=== PATIENT | female | born 1930 | race African-American/Black ===

== ENCOUNTER 2018-12-18 14:01 | Inpatient (IN) | payer OTHER ==
[~2018-12-18] VITALS: Ht 165.1 cm; Wt 45.5 kg
[~2018-12-18 14:01] MED LIST: AMLODIPINE BESYL5 MG ORAL; CARBAMAZEPINE200 MG ORAL; METOPROLOL SUCC50 MG ORAL
[2018-12-18] MEDS ORDERED: Sodium Chloride 550 ML IV SCH (14:15)
[2018-12-18] MEDS ORDERED: Omnipaque-300 100ml vial INJ PRN (14:15)
--- NOTE | 2018-12-18 14:16 | NUR ---
ED Nurse Note: Pt came in to ED due to generalized weaknes x 1 week. Pt also c/o decreased in her appetite. Denies CP or any pain. Noted yellow skin color. AAO x4 and ambulatory with non labored breathing.
--- NOTE | 2018-12-18 14:17 | Emergency Room Report ---
History of Present Illness General Chief Complaint: Generalized Weakness Source: Patient, Medical Record Present Illness HPI The patient presents with jaundice and weight loss. She is uncertain how long this is been going on. She feels hungry at this time usually does not have an appetite. She occasionally has diarrhea but denies any vomiting. She also denies abdominal pain. A friend of hers saw her today and said that she had jaundice and that she needed to go to the hospital. She is uncertain what this means and has not been told by her doctor with the diagnosis is. She is complaining about generalized weakness. She denies any depression. The patient denies fevers, chills, chest pain, cough, dysuria, joint pain. History of hypertension. Allergies: Coded Allergies: No Known Allergies (Unverified , 08/08/18) Patient History Past Medical History: old chart reviewed Social History: Denies: smoking, alcohol use, drug use Social History Narrative from home Last Menstrual Period: N/A Reviewed Nursing Documentation: PMH: Agreed; PSxH: Agreed Nursing Documentation-PMH Hx Cardiac Problems: No Hx Hypertension: Yes Hx Pacemaker: No Hx Asthma: No Hx COPD: No Hx Diabetes: No Hx Cancer: No Hx Gastrointestinal Problems: No Hx Dialysis: No Hx Neurological Problems: No Hx Cerebrovascular Accident: No Hx Seizures: No Review of Systems All Other Systems: negative except mentioned in HPI Physical Exam Vital Signs Date Time Temp Pulse Resp B/P (MAP) Pulse Ox O2 Delivery O2 Flow Rate FiO2 12/18/18 14:02 97.2 81 18 135/61 (85) 97 Room Air Sp02 EP Interpretation: reviewed, normal General Appearance: no apparent distress, alert, non-toxic, cachetic, thin, Chronically Ill Head: normocephalic, atraumatic Eyes: bilateral eye PERRL, bilateral eye scleral icterus ENT: dry mucus membranes Neck: supple Respiratory: lungs clear Cardiovascular #1: regular rate, rhythm Cardiovascular #2: 2+ radial (R) Gastrointestinal: non tender, soft, no mass, scaphoid Genitourinary: no CVA tenderness Musculoskeletal: back normal, normal range of motion Neurologic: alert, motor weakness - Diffuse, other - No asterixis, oriented - X2 Psychiatric: mood/affect normal Skin: jaundice Medical Decision Making Diagnostic Impression: Primary Impression: Painless jaundice Additional Impressions: Pancreatic mass Dehydration Severe protein-calorie malnutrition ER Course The patient presents with painless jaundice and signs of dehydration. Differential includes obstructive lesion in the gallbladder system, hepatitis, weakness, weight loss amongst others. Evaluation will be with EKG, chest x-ray , CT of the abdomen and pelvis with contrast, ultrasound of the abdomen and labs. The patient will receive IV hydration. EKG normal sinus rhythm with ST inversions inferiorly and septally with prolonged QT. CBC essentially normal. CMP with elevated bilirubin and liver function test, low sodium and potassium with mild renal insufficiency. Lipase minimally elevated. Coags normal. Ultrasound with biliary dilatation and possible pancreatic mass. Gallbladder wall normal. Possible sludge. CT is recorded below with pancreatic mass. Patient evaluated by Dr. Yoo in ED. Admitted Dr. Sky. Contact Dr. Galvez for consultation. Laboratory Tests Test 12/18/18 14:12 12/18/18 17:15 White Blood Count 9.8 K/UL (4.8-10.8) Red Blood Count 3.39 M/UL (4.20-5.40) L Hemoglobin 11.1 G/DL (12.0-16.0) L Hematocrit 33.8 % (37.0-47.0) L Mean Corpuscular Volume 100 FL (80-99) H Mean Corpuscular Hemoglobin 32.6 PG (27.0-31.0) H Mean Corpuscular Hemoglobin Concent 32.8 G/DL (32.0-36.0) Red Cell Distribution Width 13.5 % (11.6-14.8) Platelet Count 404 K/UL (150-450) Mean Platelet Volume 5.5 FL (6.5-10.1) L Neutrophils (%) (Auto) % (45.0-75.0) Lymphocytes (%) (Auto) % (20.0-45.0) Monocytes (%) (Auto) % (1.0-10.0) Eosinophils (%) (Auto) % (0.0-3.0) Basophils (%) (Auto) % (0.0-2.0) Differential Total Cells Counted 100 Neutrophils % (Manual) 89 % (45-75) H Lymphocytes % (Manual) 6 % (20-45) L Monocytes % (Manual) 3 % (1-10) Eosinophils % (Manual) 0 % (0-3) Basophils % (Manual) 0 % (0-2) Band Neutrophils 2 % (0-8) Platelet Estimate Adequate Platelet Morphology Normal Polychromasia 1+ Macrocytosis 1+ Prothrombin Time 10.6 SEC (9.30-11.50) Prothrombin Time INR 1.0 (0.9-1.1) PTT 25 SEC (23-33) Sodium Level 131 MMOL/L (136-145) L Potassium Level 3.3 MMOL/L (3.5-5.1) L Chloride Level 90 MMOL/L (98-107) L Carbon Dioxide Level 18 MMOL/L (21-32) L Anion Gap 23 mmol/L (5-15) H Blood Urea Nitrogen 24 mg/dL (7-18) H Creatinine 1.2 MG/DL (0.55-1.30) Estimate Glomerular Filtration Rate mL/min (>60) Glucose Level 107 MG/DL (74-106) H Calcium Level 9.7 MG/DL (8.5-10.1) Total Bilirubin 22.4 MG/DL (0.2-1.0) H Direct Bilirubin 18.3 MG/DL (0.0-0.3) H Aspartate Amino Transferase (AST) 156 U/L (15-37) H Alanine Aminotransferase (ALT) 165 U/L (12-78) H Alkaline Phosphatase 502 U/L (46-116) H Ammonia < 10 umol/L (11-32) L Troponin I 0.000 ng/mL (0.000-0.056) Total Protein 6.4 G/DL (6.4-8.2) Albumin 2.9 G/DL (3.4-5.0) L Globulin 3.5 g/dL Albumin/Globulin Ratio 0.8 (1.0-2.7) L Amylase Level 89 U/L (25-115) Lipase 523 U/L (73-393) H Urine Color [place] Urine Appearance Cloudy Urine pH 6 (4.5-8.0) Urine Specific [place] 1.010 (1.005-1.035) Urine Protein 2+ (NEGATIVE) H Urine Glucose (UA) Negative (NEGATIVE) Urine Ketones 4+ (NEGATIVE) H Urine Blood 4+ (NEGATIVE) H Urine Nitrite Positive (NEGATIVE) H Urine Bilirubin 2+ (NEGATIVE) H Urine Ictotest Positive (NEGATIVE) Urine Urobilinogen 4 MG/DL (0.0-1.0) H Urine Leukocyte Esterase 1+ (NEGATIVE) H Urine RBC 15-20 /HPF (0 - 2) H Urine WBC 2-4 /HPF (0 - 2) Urine Squamous Epithelial Cells Few /LPF (NONE/OCC) Urine Bacteria Many /HPF (NONE) H EKG Diagnostic Results Rate: normal Rhythm: NSR ST Segments: no acute changes - ST inversions inferiorly and septally without acute injury. QTC is 500 which is prolonged. Rhythm Strip Diag. Results EP Interpretation: yes Rhythm: NSR, no PVC's, no ectopy CT/MRI/US Diagnostic Results CT/MRI/US Diagnostic Results #1: Imaging Test Ordered: us abd Impression dilated portal system and possible pancreatic mass CT/MRI/US Diagnostic Results #2: Imaging Test Ordered: CT abdomen and pelvis Impression Impression: 1 heterogeneous mass within the body of the pancreas measuring 5.1 x 5.0 x 5.9 cm with area of internal cystic change. Findings consistent with malignancy. 2 there is upstream dilatation of the pancreatic duct and severe intrahepatic and extrahepatic biliary dilatation. 3 the gallbladder is markedly distended extending into the pelvis. No mucosal inflammatory changes. For portal veins splenic vein and superior mesenteric vein are patent. 5 nonspecific left adrenal nodule measuring 1.9 cm. Metastatic disease could have this appearance however the distribution would be atypical for primary pancreatic malignancy. 6 sigmoid diverticulosis without diverticulitis. Last Vital Signs Date Time Temp Pulse Resp B/P (MAP) Pulse Ox O2 Delivery O2 Flow Rate FiO2 12/19/18 00:56 97.6 76 17 131/66 (87) 12/18/18 21:37 Room Air 12/18/18 18:58 98 Status: improved Disposition: ADMITTED INPATIENT Condition: Serious Parish Ewing MD Dec 18, 2018 14:17
[2018-12-18 14:38] LABS: HEMATOCRIT 33.8 % (37.0-47.0); HEMOGLOBIN 11.1 G/DL (12.0-16.0); MEAN CORPUSCULAR VOLUME 100 FL (80-99); PLATELET COUNT 404 K/UL (150-450); RED BLOOD COUNT 3.39 M/UL (4.20-5.40); RED CELL DISTRIBUTION WIDTH 13.5 % (11.6-14.8); WHITE BLOOD COUNT 9.8 K/UL (4.8-10.8)
--- NOTE | 2018-12-18 14:48 | Consultation ---
History of Present Illness General Date patient seen: Dec 18, 2018 Reason for Hospitalization: Generalized Weakness Present Illness HPI This is a very pleasant 88-year-old female who presented to the emergency department at [facility] complaining of decreased appetite, weight loss, fatigue, jaundice. Patient is presenting with her family member "June" who confirms the above. States that she is been having decreased appetite for some time now but is been worsening in the past week. Feels like she is losing significant weight which she has been for some time but worsening in the past week. States that she feels much thinner and weaker than before. Has identified jaundice but unsure about how long its been going on for. States that she saw her loan analyst approximately 2 weeks ago and did not mention anything about her jaundice. Believes it may have just happened in the past week. Family member believes that it may have been going on a little bit longer as she states last time she was at the grocery store with her few weeks ago she thought she may have been jaundiced. No nausea vomiting fever chills. Passing flatus. No pain. No itching. No prior symptoms. Has difficulty remembering all of her medical conditions. Allergies: Coded Allergies: No Known Allergies (Unverified , 08/08/18) Medication History Scheduled Amlodipine Besylate* (Amlodipine Besylate*), 5 MG ORAL BID, (Reported) Carbamazepine* (Carbamazepine*), 200 MG ORAL BID, (Reported) Metoprolol Succinate* (Metoprolol Succinate*), 50 MG ORAL DAILY, (Reported) Patient History Limited by: other History Provided By: Patient, Family Member, Medical Record, PMD Healthcare decision maker Resuscitation status Advanced Directive on File Past Medical/Surgical History Past Medical/Surgical History: (1) Painless jaundice Review of Systems Review of Symptoms General ROS: no weight loss or fever Psychological ROS: no depression or mood changes, no memory loss Ophthalmic ROS: no visual changes or eye irritation ENT ROS: no nasal congestion, hearing loss, dizziness Allergy and Immunology ROS: no allergic symptoms or urticaria Hematological and Lymphatic ROS: no swollen glands, unusual bleeding or bruising Endocrine ROS: no polyuria, polydipsia, weight changes, temperature intolerance Respiratory ROS: no cough, shortness of breath, or wheezing Cardiovascular ROS: no chest pain or dyspnea on exertion Gastrointestinal ROS: denies abdominal pain, bright red blood in stool. Musculoskeletal ROS: no myalgias or arthralgias Neurological ROS: no TIA or stroke symptoms Dermatological ROS: no new or changing skin lesions, rashes or pruritis Physical Exam Physical Exam General appearance: alert, cooperative, no distress, appears stated age jaundice Head: Normocephalic, without obvious abnormality, atraumatic, icteric Eyes: conjunctivae/corneas clear. PERRL, EOM's intact. Fundi benign icteric Throat: Lips, mucosa, and tongue normal. Teeth and gums normal Neck: supple, symmetrical, trachea midline, no adenopathy, thyroid: not enlarged, symmetric, no tenderness/mass/nodules, no carotid bruit and no JVD Lungs: clear to auscultation bilaterally Heart: regular rate and rhythm, S1, S2 normal, no murmur, click, rub or gallop Abdomen: soft, non-tender. Bowel sounds normal. No masses, no organomegaly Extremities: extremities normal, atraumatic, no cyanosis or edema Pulses: 2+ and symmetric Skin: Skin color, texture, turgor normal. No rashes or lesions, jaundice Neurologic: Grossly normal Last 24 Hour Vital Signs Date Time Temp Pulse Resp B/P (MAP) Pulse Ox O2 Delivery O2 Flow Rate FiO2 12/18/18 14:16 81 18 Room Air 12/18/18 14:02 97.2 81 18 135/61 (85) 97 Room Air Laboratory Tests Test 12/18/18 14:12 White Blood Count 9.8 K/UL (4.8-10.8) Red Blood Count 3.39 M/UL (4.20-5.40) L Hemoglobin 11.1 G/DL (12.0-16.0) L Hematocrit 33.8 % (37.0-47.0) L Mean Corpuscular Volume 100 FL (80-99) H Mean Corpuscular Hemoglobin 32.6 PG (27.0-31.0) H Mean Corpuscular Hemoglobin Concent 32.8 G/DL (32.0-36.0) Red Cell Distribution Width 13.5 % (11.6-14.8) Platelet Count 404 K/UL (150-450) Mean Platelet Volume 5.5 FL (6.5-10.1) L Neutrophils (%) (Auto) % (45.0-75.0) Lymphocytes (%) (Auto) % (20.0-45.0) Monocytes (%) (Auto) % (1.0-10.0) Eosinophils (%) (Auto) % (0.0-3.0) Basophils (%) (Auto) % (0.0-2.0) Neutrophils % (Manual) Pending Lymphocytes % (Manual) Pending Platelet Estimate Pending Platelet Morphology Pending Prothrombin Time Pending Prothromb Time International Ratio Pending Activated Partial Thromboplast Time Pending Sodium Level Pending Potassium Level Pending Chloride Level Pending Carbon Dioxide Level Pending Blood Urea Nitrogen Pending Creatinine Pending Estimat Glomerular Filtration Rate Pending Glucose Level Pending Calcium Level Pending Total Bilirubin Pending Aspartate Amino Transf (AST/SGOT) Pending Alanine Aminotransferase (ALT/SGPT) Pending Alkaline Phosphatase Pending Ammonia Pending Troponin I Pending Total Protein Pending Albumin Pending Globulin Pending Amylase Level Pending Lipase Pending Height (Feet): 5 Height (Inches): 9.00 Weight (Pounds): 105 Medications Current Medications Medications (Trade) Dose Ordered Sig/Og Route PRN Reason Start Time Stop Time Status Last Admin Dose Admin Barium Sulfate (Readi-Cat 2) 450 ml NOW PRN ORAL Radiology Procedure 12/18/18 14:15 12/20/18 14:11 Iohexol (OMNIPAQUE-300 100ml) 100 ml NOW PRN INJ Radiology Procedure 12/18/18 14:15 12/20/18 14:11 Sodium Chloride 550 ml @ 200 mls/hr Q2H45M IV 12/18/18 14:15 01/17/19 14:14 Assessment/Plan Problem List: (1) Severe protein-calorie malnutrition ICD Codes: E43 - Unspecified severe protein-calorie malnutrition SNOMED: 997272141, [id number], [id number] (2) Painless jaundice Assessment & Plan: IMPRESSION: 1. Heterogeneous mass within the body of the pancreas measuring 5.1 x 5. 0 x 5.9 cm with area of internal cystic change. Finding is consistent with malignancy. 2. There is upstream dilatation of the pancreatic duct and severe intrahepatic and extrahepatic biliary dilatation. 3. The gallbladder is markedly distended extending into the pelvis. No mucosal inflammatory changes. 4. The portal veins, splenic vein, and SMV are patent. 5. Nonspecific left adrenal nodule measuring 1.9 cm. Metastatic disease could have this appearance however the distribution would be atypical for a primary pancreatic malignancy. 6. Sigmoid diverticulosis without diverticulitis. Likely pancreatic CA patient not aware of this until today labs noted recommend transfer to higher level of care thank you ICD Codes: R17 - Unspecified jaundice SNOMED: [id number], [id number] Vel Yoo Dec 18, 2018 14:48
--- NOTE | 2018-12-18 14:49 | NUR ---
ED Nurse Note: Friends left phone numbers June [phone] Apoorva [phone]
[2018-12-18 14:55] LABS: AMMONIA < 10 umol/L (11-32)
[2018-12-18 15:02] VITALS: BP 121/65
[2018-12-18 15:11] LABS: ALANINE AMINOTRANSFERASE 165 U/L (12-78); ALBUMIN 2.9 G/DL (3.4-5.0); ALBUMIN/GLOBULIN RATIO 0.8 (1.0-2.7); ALKALINE PHOSPHATASE 502 U/L (46-116); AMYLASE 89 U/L (25-115); ANION GAP 23 mmol/L (5-15); ASPARTATE AMINO TRANSFERASE 156 U/L (15-37); BILIRUBIN,TOTAL 22.4 MG/DL (0.2-1.0); BLOOD UREA NITROGEN 24 mg/dL (7-18); CALCIUM 9.7 MG/DL (8.5-10.1); CARBON DIOXIDE 18 MMOL/L (21-32); CHLORIDE 90 MMOL/L (98-107); CREATININE 1.2 MG/DL (0.55-1.30); POTASSIUM 3.3 MMOL/L (3.5-5.1); SODIUM 131 MMOL/L (136-145)
[2018-12-18 15:15] LABS: BILIRUBIN,DIRECT 18.3 MG/DL (0.0-0.3)
--- NOTE | 2018-12-18 16:35 | NUR ---
ED Nurse Note: Pt taken to CT and stable.
[2018-12-18 16:41] VITALS: BP 103/45
--- NOTE | 2018-12-18 16:51 | NUR ---
ED Nurse Note: Pt came back from CT and stable.
--- NOTE | 2018-12-18 17:40 | NUR ---
ED Nurse Note: Collected urine then sent to lab.
[2018-12-18 17:48] LABS: APPEARANCE,URINE CLOUDY; BILIRUBIN, URINE 2+ (NEGATIVE); GLUCOSE, URINE (UA) NEGATIVE (NEGATIVE); KETONES,URINE 4+ (NEGATIVE); LEUKOCYTE ESTERASE ,URINE 1+ (NEGATIVE); NITRITE,URINE POSITIVE (NEGATIVE); PH,URINE 6 (4.5-8.0); PROTEIN,URINE 2+ (NEGATIVE); UROBILINOGEN,URINE 4 MG/DL (0.0-1.0)
[2018-12-18 17:52] LABS: COLOR,URINE ORANGE
--- NOTE | 2018-12-18 18:50 | NUR ---
NURSE NOTES: Received patient from ER at 1820 from transporter laying on [place] CAREN x4 with out no distress wet with urine and bowel, get cleaned and skin intact, skin barrier cream applied. bed on low position locked and alarm on, call light with in reach, belonging received and signed, pant, blouse, slipper and under wear patient claimed she had wallet and cellphone RN and Tech verified with ER nurse no cellphone or wallet seen or reported at ER. Per ER nurse patient brought to the hospital by a neighbor may be she took it back home, pt. will call and verify with neighbor. noted white liquid stool with sour smell and will endorse to night shift supervisor nurse to report to MD.
[2018-12-18 18:58] VITALS: BP 132/72
--- NOTE | 2018-12-18 19:08 | Diagnostic Imaging Report ---
EXAM: CT Abdomen and Pelvis With Intravenous Contrast CLINICAL HISTORY: ABD PAIN TECHNIQUE: Axial computed tomography images of the abdomen and pelvis with intravenous contrast. CTDI is 9.8 mGy and DLP is 521.9 mGy-cm. One or more of the following dose reduction techniques were used: automated exposure control, adjustment of the mA and or kV according to patient size, use of iterative reconstruction technique. COMPARISON: No relevant prior studies available. FINDINGS: Lung bases: Unremarkable. No mass. No consolidation. ABDOMEN: Liver: See below. Gallbladder and bile ducts: The gallbladder is markedly distended extending into the pelvis. No mucosal inflammatory changes. Pancreas: Heterogeneous mass within the body of the pancreas measuring 5.1 x 5.0 x 5.9 cm with area of internal cystic change. There is upstream dilatation of the pancreatic duct and severe intrahepatic and extrahepatic biliary dilatation. Spleen: See below. Adrenals: Nonspecific left adrenal nodule measuring 1.9 cm. Kidneys and ureters: Unremarkable. No solid mass. No hydronephrosis. Stomach and bowel: Sigmoid diverticulosis without diverticulitis. No obstruction. PELVIS: Appendix: No findings to suggest acute appendicitis. Bladder: Unremarkable. No mass. Reproductive: Unremarkable as visualized. ABDOMEN and PELVIS: Intraperitoneal space: Unremarkable. No free air. No significant fluid collection. Bones joints: No acute fracture. No dislocation. Soft tissues: Unremarkable. Vasculature: The portal veins, splenic vein, and SMV are patent. No abdominal aortic aneurysm. Lymph nodes: Unremarkable. No enlarged lymph nodes. IMPRESSION: 1. Heterogeneous mass within the body of the pancreas measuring 5.1 x 5. 0 x 5.9 cm with area of internal cystic change. Finding is consistent with malignancy. 2. There is upstream dilatation of the pancreatic duct and severe intrahepatic and extrahepatic biliary dilatation. 3. The gallbladder is markedly distended extending into the pelvis. No mucosal inflammatory changes. 4. The portal veins, splenic vein, and SMV are patent. 5. Nonspecific left adrenal nodule measuring 1.9 cm. Metastatic disease could have this appearance however the distribution would be atypical for a primary pancreatic malignancy. 6. Sigmoid diverticulosis without diverticulitis.
--- NOTE | 2018-12-18 19:23 | Diagnostic Imaging Report ---
EXAM: US Abdomen Complete CLINICAL HISTORY: ABD PAIN TECHNIQUE: Real-time ultrasound of the abdomen (complete) with image documentation. COMPARISON: Same-day CT abdomen pelvis. FINDINGS: Liver: Dilatation of the intrahepatic and extrahepatic biliary tree, common bile duct measuring 7 mm. Cyst within the left hepatic lobe measuring 2.8 cm. Gallbladder: Sludge within the gallbladder which is markedly distended. No gallstones. Common bile duct: Measures 7 mm. Pancreas: Mass in the pancreas measuring 6.6 cm. Kidneys: Unremarkable. No stones. No solid mass. No hydronephrosis. Spleen: Unremarkable. No splenomegaly. Aorta: Unremarkable. No aneurysm. Inferior vena cava: Unremarkable. IMPRESSION: 1. Mass within the pancreatic body resulting in severe biliary dilatation and upstream pancreatic ductal dilatation. Overall evaluation better performed on the same day CT. 2. Distended gallbladder with intraluminal sludge.
--- NOTE | 2018-12-18 19:31 | NUR ---
HAND-OFF: Report given to Van Adam RN patient stable condition.
--- NOTE | 2018-12-18 20:12 | History & Physical ---
History and Physical History & Physicial #[id number] 5 cm pancreatic mass liliana dilt distended gall baladder jaundice Reqeusted transfer to [facility] gi and surgery eval IVF npo pain onctrol home meds Daisy Sky DO Dec 18, 2018 20:12
[2018-12-18] MEDS ORDERED: Morphine Sulfate 2mg/ml Inj(IV/IM USE ONLY) IVP PRN (20:45)
[2018-12-18] MEDS: D5NS 1,000 ML IV SCH (20:57)
--- NOTE | 2018-12-18 21:15 | History and Physical Report ---
DATE OF ADMISSION: 12/18/2018 REASON FOR ADMISSION: Jaundice. HISTORY OF PRESENT ILLNESS: This is an 88-year-old female, who states she has had significant amount of weight loss. She has also been jaundiced. Timeframe is between 2 weeks and a month. Not taking NPO. Generally weak. No nausea, vomiting, diarrhea, fever, chills, or ill contacts. She was brought into the emergency room and ultrasound showed a possible pancreatic mass. A CT scan of the abdomen and pelvis was obtained, which did show a 5.1 x 5 x 5.9 cm heterogeneous masses in the body of the pancreas, upstream dilatation of the pancreatic duct, severe intrahepatic and extrahepatic biliary ductal dilatation was noted. The gallbladder was markedly distended and extending into the pelvis. No mucosal inflammatory changes were noted. The adrenals had a left nodule measuring 1.9 cm. The kidneys are unremarkable. The appendix was negative for findings of appendicitis. There was no free air noted and the portal vein and splenic veins and SMV were all patent and sigmoid diverticulosis was noted. PAST MEDICAL HISTORY: Includes hypertension. MEDICATIONS: Pre-hospital medications and present medications were reviewed, reconciled, and documented in the electronic medical record by dose, frequency, and route. ALLERGIES: She has no known drug allergies. SOCIAL HISTORY: Negative for tobacco and drugs. FAMILY HISTORY IS: Noncontributory. REVIEW OF SYSTEMS: As previously stated. The patient does live at home. PHYSICAL EXAMINATION: GENERAL: At the time my exam, she is alert, cachectic, and in no acute respiratory distress. VITAL SIGNS: She is afebrile. Her pulse is 91, respirations 18, and blood pressure 130/78, and she is 98% on 2 liters. HEENT: She is normocephalic and atraumatic. Oropharynx is dry. Nasal mucosa is dry. She has a poor dentition. NECK: Supple. LUNGS: Decreased at the bases. No wheeze present. HEART: Regular without a murmur. ABDOMEN: Soft, nondistended, and mildly tender. EXTREMITIES: No edema. No focal deficits are noted. LABORATORY DATA: Her white count is 9.8, hemoglobin 11.1, and platelets are 404,000. Her sodium is 131, potassium 3.3, chloride 90, bicarb 18, BUN 24, creatinine 1.2, and glucose is 107. Her direct bilirubin is 18.3. AST is 156, ALT is 165, and alkaline phosphatase is 502. Troponins negative. Albumin is 2.9. Lipase is 523. Her urinalysis is positive for leukocyte esterase. ASSESSMENT: Newly diagnosed large pancreatic mass suspicious for malignancy with and hyperbilirubinemia and enlarged gallbladder extending down to the pelvis, cachexia, malnutrition, renal insufficiency, dehydration, and hyponatremia. PLAN: She is currently Full Code. I have requested her to be transferred to [facility], which is the medical group for further continuation of care. Dr. Schwartz is her primary care physician. At this time, we will keep her NPO, IV fluids. Monitor her ins and outs and pain control. Gastroenterology has asked to see the patient. Surgery has seen the patient and we will notify of the CT findings. Daisy Sky D.O. DR: GALLO JOB#: [id number] CC:
--- NOTE | 2018-12-18 22:30 | NUR ---
NURSES NOTES: Patient is new admission. Entered Med Surg unit at apprx 1825 12/18. Pt was seen by attending doctor who suggested patient be transferred to [facility]. Phoebe called from [facility] and requested recent H&P which was faxed to [phone]. Currently, Phoebe states there are no beds available but will update in the morning. Patients VS wnl, no s/s of distress, unlabored breathing pattern noted, NPO. Call light within reach, bed at lowest position, will continue to monitor.
[2018-12-19 00:56] VITALS: BP 131/66
[2018-12-19 04:00] VITALS: BP 116/48
[2018-12-19] MEDS: D5NS 1,000 ML IV SCH ×2 (06:23→16:35)
[2018-12-19 06:30] LABS: BASOPHILS % (AUTO) 0.3 % (0.0-2.0); EOSINOPHILS % (AUTO) 0.1 % (0.0-3.0); HEMATOCRIT 31.6 % (37.0-47.0); HEMOGLOBIN 10.4 G/DL (12.0-16.0); LYMPHOCYTES % (AUTO) 11.8 % (20.0-45.0); MEAN CORPUSCULAR VOLUME 99 FL (80-99); MONOCYTES % (AUTO) 5.5 % (1.0-10.0); NEUTROPHILS % (AUTO) 82.1 % (45.0-75.0); PLATELET COUNT 382 K/UL (150-450); RED BLOOD COUNT 3.19 M/UL (4.20-5.40); RED CELL DISTRIBUTION WIDTH 13.9 % (11.6-14.8); WHITE BLOOD COUNT 6.6 K/UL (4.8-10.8)
[2018-12-19 06:46] LABS: ALANINE AMINOTRANSFERASE 135 U/L (12-78); ALBUMIN 2.4 G/DL (3.4-5.0); ALKALINE PHOSPHATASE 437 U/L (46-116); ANION GAP 14 mmol/L (5-15); ASPARTATE AMINO TRANSFERASE 120 U/L (15-37); BILIRUBIN,DIRECT 15.1 MG/DL (0.0-0.3); BILIRUBIN,TOTAL 19.1 MG/DL (0.2-1.0); BLOOD UREA NITROGEN 16 mg/dL (7-18); CALCIUM 8.9 MG/DL (8.5-10.1); CARBON DIOXIDE 24 MMOL/L (21-32); CHLORIDE 97 MMOL/L (98-107); POTASSIUM 3.4 MMOL/L (3.5-5.1); SODIUM 135 MMOL/L (136-145)
--- NOTE | 2018-12-19 07:30 | NUR ---
NURSE NOTES: Patient is in bed awake and able to verbalize needs. Stable. Denies pain or SOB. Patient is jaundiced. IVF running as ordered. Patient encouraged to use call light for assistance, verbalized understanding. Patient is in bed in locked and lowest position with call light within reach. Will continue to monitor.
--- NOTE | 2018-12-19 07:46 | NUR ---
HAND-OFF: Report given to Jie. Patient in stable condition.
[2018-12-19 08:00] VITALS: BP 114/55
--- NOTE | 2018-12-19 08:54 | NUR ---
CASE MANAGEMENT: INITIAL REVIEW 88 YO F PRESENTED TO OUR ED FROM HOME CC: GEN WEAKNESS. WEIGHT LOSS. PMHx: HTN. SI:PAINLESS JAUNDICE T 97.2 HR 81 RR 18 B/P 135/61 SATS 97% ON RA NA 131 K 3.3 CL 90 CO2 18 B/P 24 GLU 107 TBILI 22.4 DBILI 18.3 AST 156 ALT 165 ALP 502 AMMONIA <10 LIPASE 523 IS: NS BOLUS X2 CT ABD/PELVIS IMPRESSION: 1. Heterogeneous mass within the body of the pancreas measuring 5.1 x 5.0 x 5.9 cm with area of internal cystic change. Finding is consistent with malignancy. US ABD IMPRESSION: 1. Mass within the pancreatic body resulting in severe biliary dilatation and upstream pancreatic ductal dilatation. 2. Distended gallbladder with intraluminal sludge. PATIENT ADMITTED TO MED/SURG 12/18/2018 @ 1652 DCP: PATIENT TO BE DISCHARGED TO HOME ONCE MEDICALLY CLEARED PLAN OF CARE: SURGICAL CONSULT 12/19/2018 SI:PAINLESS JAUNDICE T 97.8 HR 73 RR 18 B/P 116/48 SATS 100% ON RA NA 135 K 3.4 CL 97 GLU 205 TBILI 19.1 DBILI 15.1 AST 120 ALT 135 ALP 47 LIPASE 544 IS: IVF @ 100 mL/HR MED/SURG DCP: PATIENT TO BE DISCHARGED TO HOME ONCE MEDICALLY CLEARED PLAN OF CARE: SURGICAL CONSULT
--- NOTE | 2018-12-19 09:24 | General Progress Note ---
Assessment/Plan Assessment/Plan: GI CONSULT Dictated Painless jaundice. Pancreatic mass. Presumed pancreatic CA Will plan for EUS/FNA and ERCP/Stent in am (can be also done at [facility] if transferred) Check tumor markers Consider Onc eval Thank you Scott Steiner MD Subjective Allergies: Coded Allergies: No Known Allergies (Unverified , 08/08/18) Objective Last 24 Hour Vital Signs Date Time Temp Pulse Resp B/P (MAP) Pulse Ox O2 Delivery O2 Flow Rate FiO2 12/19/18 08:00 97.7 77 17 114/55 (74) 98 12/19/18 04:00 97.8 73 18 116/48 (70) 100 12/19/18 00:56 97.6 76 17 131/66 (87) 12/18/18 21:37 Room Air 12/18/18 18:58 97.9 91 19 132/72 (92) 98 12/18/18 18:11 98.3 79 15 115/67 99 Room Air 12/18/18 16:41 97.2 80 17 103/45 100 Room Air 12/18/18 15:02 97.2 78 18 121/65 100 Room Air 12/18/18 14:16 81 18 Room Air 12/18/18 14:02 97.2 81 18 135/61 (85) 97 Room Air Intake and Output 12/18/18 12/19/18 19:00 07:00 Intake Total 1200 ml 900 ml Balance 1200 ml 900 ml Intake IV Total 1200 ml 900 ml # Voids 2 # Bowel Movements 1 Laboratory Tests 12/18/18 14:12: White Blood Count 9.8, Red Blood Count 3.39L, Hemoglobin 11.1L, Hematocrit 33.8L , Mean Corpuscular Volume 100H, Mean Corpuscular Hemoglobin 32.6H, Mean Corpuscular Hemoglobin Concent 32.8, Red Cell Distribution Width 13.5, Platelet Count 404, Mean Platelet Volume 5.5L, Neutrophils (%) (Auto) , Lymphocytes (%) ( Auto) , Monocytes (%) (Auto) , Eosinophils (%) (Auto) , Basophils (%) (Auto) , Differential Total Cells Counted 100, Neutrophils % (Manual) 89H, Lymphocytes % (Manual) 6L, Monocytes % (Manual) 3, Eosinophils % (Manual) 0, Basophils % ( Manual) 0, Band Neutrophils 2, Platelet Estimate Adequate, Platelet Morphology Normal, Polychromasia 1+, Macrocytosis 1+, Prothrombin Time 10.6, Prothromb Time International Ratio 1.0, Activated Partial Thromboplast Time 25, Sodium Level 131L, Potassium Level 3.3L, Chloride Level 90L, Carbon Dioxide Level 18L, Anion Gap 23H, Blood Urea Nitrogen 24H, Creatinine 1.2, Estimat Glomerular Filtration Rate , Glucose Level 107H, Calcium Level 9.7, Total Bilirubin 22.4H, Direct Bilirubin 18.3H, Aspartate Amino Transf (AST/SGOT) 156H, Alanine Aminotransferase (ALT/SGPT) 165H, Alkaline Phosphatase 502H, Ammonia < 10L, Troponin I 0.000, Total Protein 6.4, Albumin 2.9L, Globulin 3.5, Albumin/ Globulin Ratio 0.8L, Amylase Level 89, Lipase 523H 12/18/18 17:15: Urine Color [place], Urine Appearance Cloudy, Urine pH 6, Urine Specific [place] 1.010, Urine Protein 2+H, Urine Glucose (UA) Negative, Urine Ketones 4+H, Urine Blood 4+H, Urine Nitrite PositiveH, Urine Bilirubin 2+H, Urine Ictotest Positive , Urine Urobilinogen 4H, Urine Leukocyte Esterase 1+H, Urine RBC 15-20H, Urine WBC 2-4, Urine Squamous Epithelial Cells Few, Urine Bacteria ManyH 12/19/18 05:10: White Blood Count 6.6, Red Blood Count 3.19L, Hemoglobin 10.4L, Hematocrit 31.6L , Mean Corpuscular Volume 99, Mean Corpuscular Hemoglobin 32.7H, Mean Corpuscular Hemoglobin Concent 33.0, Red Cell Distribution Width 13.9, Platelet Count 382, Mean Platelet Volume 5.5L, Neutrophils (%) (Auto) 82.1H, Lymphocytes (%) (Auto) 11.8L, Monocytes (%) (Auto) 5.5, Eosinophils (%) (Auto) 0.1, Basophils (%) (Auto) 0.3, Sodium Level 135L, Potassium Level 3.4L, Chloride Level 97L, Carbon Dioxide Level 24, Anion Gap 14, Blood Urea Nitrogen 16, Creatinine 1.0, Estimat Glomerular Filtration Rate , Glucose Level 205H, Calcium Level 8.9, Total Bilirubin 19.1H, Direct Bilirubin 15.1H, Aspartate Amino Transf (AST/SGOT) 120H, Alanine Aminotransferase (ALT/SGPT) 135H, Alkaline Phosphatase 437H, Total Protein 5.7L, Albumin 2.4L, Lipase 544H Height (Feet): 5 Height (Inches): 9.00 Weight (Pounds): 105 Peter Steiner MD Dec 19, 2018 09:24
[2018-12-19 12:00] VITALS: BP 124/66
[2018-12-19] MEDS ORDERED: D5NS 1000ml IV ONE (12:04)
--- NOTE | 2018-12-19 13:59 | NUR ---
RD ASSESSMENT & RECOMMENDATIONS SEE CARE ACTIVITY FOR COMPLETE ASSESSMENT DAILY ESTIMATED NEEDS: Needs based on Cachectic 40.5kg 30-35 kcals/kg 3261-0725 total kcals 1-1.5 g protein/kg 41-61 g total protein 25-30ml/kcal mL/kg 4010-7694 total fluid mLs NUTRITION DIAGNOSIS: Increased kcal and pro needs r/t underweight status, cachexia as evidenced by BMI underweight per guidelines, @61% of ideal body weight, w/ generalized moderate to severe wasting. CURRENT DIET: NPO PO DIET RECOMMENDATIONS-->> as per MD ADDITIONAL RECOMMENDATIONS: 1) W/ clear liquid diet add Ensure Clear TID 2) Rec to advance to Low Na diet/ texture as tolerated 3) Monitor BG (205), need for hypoglycemics NPO status as this time 4) Weekly calibrated bed scale wt r/t underweight status
--- NOTE | 2018-12-19 15:30 | Consultation ---
DATE OF CONSULTATION: 12/19/2018 GASTROENTEROLOGY CONSULTATION CONSULTING PHYSICIAN: Peter Steiner M.D. CHIEF COMPLAINT: I was asked to see this patient by Dr. Aryan Calles for evaluation of painless jaundice and pancreatic mass. HISTORY OF PRESENT ILLNESS: The patient is a pleasant 88-year-old woman, who has had a significant amount of weight loss over the past few months. The patient lives alone and has no support in the area. She has had no abdominal pain, nausea, vomiting, or any other symptomatology. However, she did notice that she is becoming weak and also more yellow and she came to the hospital emergency room where she was found to have jaundice with a 6 cm pancreatic mass was noted on CT. PAST MEDICAL HISTORY: As above for history of hypertension, history of diverticulosis seen on CT scan. MEDICATIONS: See the chart list for details. ALLERGIES: None. FAMILY HISTORY: Noncontributory. SOCIAL HISTORY: The patient does not drink or smoke. She has a son who lives far away and I left a message with respect to her findings and the plans. PHYSICAL EXAMINATION: GENERAL: Thin, woman, seen in her room. HEENT: Normocephalic and atraumatic. Sclerae anicteric. Oropharynx clear. NECK: Supple. CHEST: Clear to auscultation. CARDIOVASCULAR: Revealed a regular rate. ABDOMEN: Soft with a palpable supraumbilical epigastric mass. EXTREMITIES: Revealed no edema. LABORATORY DATA: Noted. ASSESSMENT: This patient has painless jaundice with a large pancreatic mass, which is highly suspicious for pancreatic cancer. The patient will have to undergo an endoscopic ultrasound to evaluate the mass and also perform fine-needle aspiration. At the same time, she also needs ERCP for stent placement and drainage. Obviously, the mass is large with poor prognostic feature. Also, the patient is quite malnourished appearing with advanced age and poor functional status. Her prognosis is therefore poor. I will check the tumor markers and Oncology opinion can be considered now or at a later date. RECOMMENDATIONS: 1. Check tumor markers. 2. NPO after midnight. 3. Endoscopic ultrasound and ERCP tomorrow as described. 4. Push oral intake. 5. DVT prophylaxis. Thank you for asking me to participate in the care of this patient. Peter Steiner M.D. DR: QIANA JOB#: [id number] CC: SUNNY
[2018-12-19 16:00] VITALS: BP 120/48
--- NOTE | 2018-12-19 16:25 | Surgery Progress Note ---
Surgery Progress Note Subjective Additional Comments no acute events now knows of mass in pancreas states has not seen MD in months or more labs noted non /v/f/c. Objective Last 24 Hour Vital Signs Date Time Temp Pulse Resp B/P (MAP) Pulse Ox O2 Delivery O2 Flow Rate FiO2 12/19/18 12:00 97.3 82 16 124/66 (85) 98 12/19/18 08:00 97.7 77 17 114/55 (74) 98 12/19/18 04:00 97.8 73 18 116/48 (70) 100 12/19/18 00:56 97.6 76 17 131/66 (87) 12/18/18 21:37 Room Air 12/18/18 18:58 97.9 91 19 132/72 (92) 98 12/18/18 18:11 98.3 79 15 115/67 99 Room Air 12/18/18 16:41 97.2 80 17 103/45 100 Room Air I&O Intake and Output 12/18/18 12/19/18 19:00 07:00 Intake Total 1200 ml 900 ml Balance 1200 ml 900 ml Intake IV Total 1200 ml 900 ml # Voids 2 # Bowel Movements 1 Cardiovascular: RSR Respiratory: clear Abdomen: soft, flat, non-tender, present bowel sounds Extremities: no edema, no tenderness, no cyanosis Laboratory Tests Test 12/18/18 17:15 12/19/18 05:10 Urine Color [place] Urine Appearance Cloudy Urine pH 6 (4.5-8.0) Urine Specific [place] 1.010 (1.005-1.035) Urine Protein 2+ (NEGATIVE) H Urine Glucose (UA) Negative (NEGATIVE) Urine Ketones 4+ (NEGATIVE) H Urine Blood 4+ (NEGATIVE) H Urine Nitrite Positive (NEGATIVE) H Urine Bilirubin 2+ (NEGATIVE) H Urine Ictotest Positive (NEGATIVE) Urine Urobilinogen 4 MG/DL (0.0-1.0) H Urine Leukocyte Esterase 1+ (NEGATIVE) H Urine RBC 15-20 /HPF (0 - 2) H Urine WBC 2-4 /HPF (0 - 2) Urine Squamous Epithelial Cells Few /LPF (NONE/OCC) Urine Bacteria Many /HPF (NONE) H White Blood Count 6.6 K/UL (4.8-10.8) Red Blood Count 3.19 M/UL (4.20-5.40) L Hemoglobin 10.4 G/DL (12.0-16.0) L Hematocrit 31.6 % (37.0-47.0) L Mean Corpuscular Volume 99 FL (80-99) Mean Corpuscular Hemoglobin 32.7 PG (27.0-31.0) H Mean Corpuscular Hemoglobin Concent 33.0 G/DL (32.0-36.0) Red Cell Distribution Width 13.9 % (11.6-14.8) Platelet Count 382 K/UL (150-450) Mean Platelet Volume 5.5 FL (6.5-10.1) L Neutrophils (%) (Auto) 82.1 % (45.0-75.0) H Lymphocytes (%) (Auto) 11.8 % (20.0-45.0) L Monocytes (%) (Auto) 5.5 % (1.0-10.0) Eosinophils (%) (Auto) 0.1 % (0.0-3.0) Basophils (%) (Auto) 0.3 % (0.0-2.0) Sodium Level 135 MMOL/L (136-145) L Potassium Level 3.4 MMOL/L (3.5-5.1) L Chloride Level 97 MMOL/L (98-107) L Carbon Dioxide Level 24 MMOL/L (21-32) Anion Gap 14 mmol/L (5-15) Blood Urea Nitrogen 16 mg/dL (7-18) Creatinine 1.0 MG/DL (0.55-1.30) Estimat Glomerular Filtration Rate mL/min (>60) Glucose Level 205 MG/DL (74-106) H Calcium Level 8.9 MG/DL (8.5-10.1) Total Bilirubin 19.1 MG/DL (0.2-1.0) H Direct Bilirubin 15.1 MG/DL (0.0-0.3) H Aspartate Amino Transf (AST/SGOT) 120 U/L (15-37) H Alanine Aminotransferase (ALT/SGPT) 135 U/L (12-78) H Alkaline Phosphatase 437 U/L (46-116) H Total Protein 5.7 G/DL (6.4-8.2) L Albumin 2.4 G/DL (3.4-5.0) L Lipase 544 U/L (73-393) H Plan Problems: (1) Severe protein-calorie malnutrition (2) Painless jaundice Assessment & Plan: IMPRESSION: 1. Heterogeneous mass within the body of the pancreas measuring 5.1 x 5. 0 x 5.9 cm with area of internal cystic change. Finding is consistent with malignancy. 2. There is upstream dilatation of the pancreatic duct and severe intrahepatic and extrahepatic biliary dilatation. 3. The gallbladder is markedly distended extending into the pelvis. No mucosal inflammatory changes. 4. The portal veins, splenic vein, and SMV are patent. 5. Nonspecific left adrenal nodule measuring 1.9 cm. Metastatic disease could have this appearance however the distribution would be atypical for a primary pancreatic malignancy. 6. Sigmoid diverticulosis without diverticulitis. Likely pancreatic CA patient not aware of this until today labs noted recommend transfer to higher level of care thank you Vel Yoo Dec 19, 2018 16:25
--- NOTE | 2018-12-19 19:16 | NUR ---
HAND-OFF: Report given to Van POOLE. Patient is stable.
--- NOTE | 2018-12-19 19:30 | NUR ---
NURSE NOTES: Received report from VIRGILIO Ceron and rounds made. Received pt laying in bed, AOx4, denies any pain, no distress noted. IV L forearm patent and intact. IV fluid infusing as ordered. Bed in lowest position and locked, side rails up x 2, call light within reach. Will continue to monitor.
[2018-12-19 20:00] VITALS: BP 121/66
--- NOTE | 2018-12-19 20:58 | Pulmonology Progress Note ---
Assessment/Plan Assessment/Plan 5 cm pancreatic mass liliana dilt distended gall baladder jaundice awaiting transfer to [facility] ERCP in the am IVF npo pain control home meds resumed Subjective Allergies: Coded Allergies: No Known Allergies (Unverified , 08/08/18) Subjective for ERCP in the am NPO except meds no fever no bleeding Objective Last 24 Hour Vital Signs Date Time Temp Pulse Resp B/P (MAP) Pulse Ox O2 Delivery O2 Flow Rate FiO2 12/19/18 16:00 98.1 89 18 120/48 (72) 98 12/19/18 12:00 97.3 82 16 124/66 (85) 98 12/19/18 08:00 97.7 77 17 114/55 (74) 98 12/19/18 04:00 97.8 73 18 116/48 (70) 100 12/19/18 00:56 97.6 76 17 131/66 (87) 12/18/18 21:37 Room Air Intake and Output 12/18/18 12/19/18 18:59 06:59 Intake Total 1200 ml 900 ml Balance 1200 ml 900 ml Intake IV Total 1200 ml 900 ml # Voids 2 # Bowel Movements 1 General Appearance: cachetic HEENT: other - icteric Respiratory/Chest: lungs clear Cardiovascular: normal rate Abdomen: distended, tender Extremities: no cyanosis Neurologic/Psychiatric: alert, oriented x 3 Microbiology Date/Time Source Procedure Growth Status 12/18/18 17:15 Urine,Clean Catch Urine Culture - Preliminary Resulted Laboratory Tests 12/19/18 05:10: White Blood Count 6.6, Red Blood Count 3.19L, Hemoglobin 10.4L, Hematocrit 31.6L , Mean Corpuscular Volume 99, Mean Corpuscular Hemoglobin 32.7H, Mean Corpuscular Hemoglobin Concent 33.0, Red Cell Distribution Width 13.9, Platelet Count 382, Mean Platelet Volume 5.5L, Neutrophils (%) (Auto) 82.1H, Lymphocytes (%) (Auto) 11.8L, Monocytes (%) (Auto) 5.5, Eosinophils (%) (Auto) 0.1, Basophils (%) (Auto) 0.3, Sodium Level 135L, Potassium Level 3.4L, Chloride Level 97L, Carbon Dioxide Level 24, Anion Gap 14, Blood Urea Nitrogen 16, Creatinine 1.0, Estimat Glomerular Filtration Rate , Glucose Level 205H, Calcium Level 8.9, Total Bilirubin 19.1H, Direct Bilirubin 15.1H, Aspartate Amino Transf (AST/SGOT) 120H, Alanine Aminotransferase (ALT/SGPT) 135H, Alkaline Phosphatase 437H, Total Protein 5.7L, Albumin 2.4L, Lipase 544H Current Medications Medications (Trade) Dose Ordered Sig/Og Route PRN Reason Start Time Stop Time Status Last Admin Dose Admin Barium Sulfate (Readi-Cat 2) 450 ml NOW PRN ORAL Radiology Procedure 12/18/18 14:15 12/20/18 14:11 Dextrose/Sodium Chloride 1,000 ml @ 100 mls/hr Q10H IV 12/18/18 20:45 01/17/19 20:44 12/19/18 16:35 Iohexol (OMNIPAQUE-300 100ml) 100 ml NOW PRN INJ Radiology Procedure 12/18/18 14:15 12/20/18 14:11 Morphine Sulfate (Morphine Sulfate) 0.5 mg Q4H PRN IVP For Pain 12/18/18 20:45 12/25/18 20:44 Daisy Sky DO Dec 19, 2018 20:58
[2018-12-20] VITALS (10 sets, daily range): BP systolic 124–144; BP diastolic 66–85
[2018-12-20] MEDS: D5NS 1,000 ML IV SCH ×2 (02:33→14:30)
[2018-12-20 06:09] LABS: BASOPHILS % (AUTO) 0.4 % (0.0-2.0); EOSINOPHILS % (AUTO) 0.4 % (0.0-3.0); HEMATOCRIT 29.2 % (37.0-47.0); HEMOGLOBIN 9.4 G/DL (12.0-16.0); LYMPHOCYTES % (AUTO) 10.3 % (20.0-45.0); MEAN CORPUSCULAR VOLUME 100 FL (80-99); MONOCYTES % (AUTO) 4.7 % (1.0-10.0); NEUTROPHILS % (AUTO) 84.2 % (45.0-75.0); PLATELET COUNT 312 K/UL (150-450); RED BLOOD COUNT 2.93 M/UL (4.20-5.40); RED CELL DISTRIBUTION WIDTH 14.1 % (11.6-14.8); WHITE BLOOD COUNT 6.9 K/UL (4.8-10.8)
[2018-12-20 06:23] LABS: ANION GAP 8 mmol/L (5-15); BLOOD UREA NITROGEN 9 mg/dL (7-18); CALCIUM 8.8 MG/DL (8.5-10.1); CARBON DIOXIDE 26 MMOL/L (21-32); CHLORIDE 107 MMOL/L (98-107); CREATININE 0.9 MG/DL (0.55-1.30); POTASSIUM 3.1 MMOL/L (3.5-5.1); SODIUM 141 MMOL/L (136-145)
--- NOTE | 2018-12-20 07:11 | Anethesia Preoperative Eval ---
Anesthesia Pre-op PMH/ROS General Date of Evaluation: Dec 20, 2018 Time of Evaluation: 07:09 Anesthesiologist: brooke ASA Score: ASA 4 Mallampati Score Class I : Soft palate, uvula, fauces, pillars visible Class II: Soft palate, uvula, fauces visible Class III: Soft palate, base of uvula visible Class IV: Only hard plate visible Mallampati Classification: Class II Surgeon: braulio Diagnosis: painless jaundice Surgical Procedure: egd/eus Anesthesia History: none Social History: smoking - nonsmoker Family History: no anesthesia problems Allergies: Coded Allergies: No Known Allergies (Unverified , 08/08/18) Medications: see eMAR Patient NPO?: Yes Past Medical History Cardiovascular: Reports: HTN Gastrointestinal/Genitourinary: Reports: other - gallbladder disease, pancreatic mass, painless jaundice Neurologic/Psychiatric: Reports: other - progressive weakness, post herpetic neuralgia Other: other - severe prtein/caloris malnutrition Anesthesia Pre-op Phys. Exam Physician Exam Last Vital Signs Date Time Temp Pulse Resp B/P (MAP) Pulse Ox O2 Delivery O2 Flow Rate FiO2 12/20/18 04:00 97.5 86 18 129/66 (87) 91 12/18/18 21:37 Room Air Constitutional: NAD, other - jaundiced Neurologic: CN 2-12 intact Cardiovascular: RRR Respiratory: CTA Gastrointestinal: S/NT/ND Airway Exam Mallampati Score: Class II MO: limited Neck: flexible TMD: 2fb ROM: limited Teeth: missing Anesthesia Pre-op A/P Labs Hematology Test 12/20/18 04:45 White Blood Count 6.9 K/UL (4.8-10.8) Red Blood Count 2.93 M/UL (4.20-5.40) L Hemoglobin 9.4 G/DL (12.0-16.0) L Hematocrit 29.2 % (37.0-47.0) L Mean Corpuscular Volume 100 FL (80-99) H Mean Corpuscular Hemoglobin 32.2 PG (27.0-31.0) H Mean Corpuscular Hemoglobin Concent 32.4 G/DL (32.0-36.0) Red Cell Distribution Width 14.1 % (11.6-14.8) Platelet Count 312 K/UL (150-450) Mean Platelet Volume 5.5 FL (6.5-10.1) L Neutrophils (%) (Auto) 84.2 % (45.0-75.0) H Lymphocytes (%) (Auto) 10.3 % (20.0-45.0) L Monocytes (%) (Auto) 4.7 % (1.0-10.0) Eosinophils (%) (Auto) 0.4 % (0.0-3.0) Basophils (%) (Auto) 0.4 % (0.0-2.0) Chemistry Test 12/20/18 04:45 Sodium Level 141 MMOL/L (136-145) Potassium Level 3.1 MMOL/L (3.5-5.1) L Chloride Level 107 MMOL/L (98-107) Carbon Dioxide Level 26 MMOL/L (21-32) Anion Gap 8 mmol/L (5-15) Blood Urea Nitrogen 9 mg/dL (7-18) Creatinine 0.9 MG/DL (0.55-1.30) Estimat Glomerular Filtration Rate mL/min (>60) Glucose Level 180 MG/DL (74-106) H Calcium Level 8.8 MG/DL (8.5-10.1) Lipase 1113 U/L (73-393) H Risk Assessment & Plan Assessment: asa4 Plan: mac Status Change Before Surgery: No Pre-Antibiotics Drug: Gita Fagan MD Dec 20, 2018 07:11
[2018-12-20] MEDS ORDERED: fentaNYL 100 mcg/2 mL IV PRN (07:15)
[2018-12-20] MEDS ORDERED: Atropine Inj 1mg/10ml Syr IV PRN (07:15)
[2018-12-20] MEDS ORDERED: DiphenhydrAMINE 50mg/ml Inj IVP PRN (07:15)
[2018-12-20] MEDS ORDERED: Midazolam 2mg/2ml Inj IVP PRN (07:15)
--- NOTE | 2018-12-20 07:39 | NUR ---
HAND-OFF: Report given to VIRGILIO Mason. Pt in stable condition.
--- NOTE | 2018-12-20 07:40 | NUR ---
NURSE NOTES: Received report from VIRGILIO Araujo. Rounding done with outgoing nurse. Pt a/o x 4, in bed. Pt is on NPO for Endoscopy and ERCP today. Lt FA IV access is patent. Bed in lowest position, call light within reach. Will continue to monitor.
--- NOTE | 2018-12-20 08:59 | NUR ---
NURSE NOTES: Potassium 3.[address] Callse was notified and ordered KCl 20 meq IVPB one time. Order read back and put it in.
[2018-12-20] MEDS: Metoprolol Succinate XL 50mg tab ORAL SCH (09:00)
[2018-12-20] MEDS: carBAMazepine 200mg tab ORAL SCH ×2 (09:00→17:24)
--- NOTE | 2018-12-20 10:44 | Surgery Progress Note ---
Surgery Progress Note Subjective Additional Comments no acute events comfortable stable labs noted exam unchanged appreciate GI input Objective Last 24 Hour Vital Signs Date Time Temp Pulse Resp B/P (MAP) Pulse Ox O2 Delivery O2 Flow Rate FiO2 12/20/18 09:00 Room Air 12/20/18 08:00 97.4 87 16 138/69 (92) 98 12/20/18 04:00 97.5 86 18 129/66 (87) 91 12/19/18 20:00 97.4 74 18 121/66 (84) 94 12/19/18 16:00 98.1 89 18 120/48 (72) 98 12/19/18 12:00 97.3 82 16 124/66 (85) 98 I&O Intake and Output 12/19/18 12/20/18 19:00 07:00 Intake Total 1100 ml 1150 ml Output Total 200 ml Balance 1100 ml 950 ml Intake Oral 50 ml IV Total 1100 ml 1100 ml Output Urine Total 200 ml # Voids 3 # Bowel Movements 1 Cardiovascular: RSR Respiratory: clear Abdomen: soft, non-tender, present bowel sounds, non-distended Extremities: no edema, no tenderness, no cyanosis Laboratory Tests Test 12/20/18 04:45 White Blood Count 6.9 K/UL (4.8-10.8) Red Blood Count 2.93 M/UL (4.20-5.40) L Hemoglobin 9.4 G/DL (12.0-16.0) L Hematocrit 29.2 % (37.0-47.0) L Mean Corpuscular Volume 100 FL (80-99) H Mean Corpuscular Hemoglobin 32.2 PG (27.0-31.0) H Mean Corpuscular Hemoglobin Concent 32.4 G/DL (32.0-36.0) Red Cell Distribution Width 14.1 % (11.6-14.8) Platelet Count 312 K/UL (150-450) Mean Platelet Volume 5.5 FL (6.5-10.1) L Neutrophils (%) (Auto) 84.2 % (45.0-75.0) H Lymphocytes (%) (Auto) 10.3 % (20.0-45.0) L Monocytes (%) (Auto) 4.7 % (1.0-10.0) Eosinophils (%) (Auto) 0.4 % (0.0-3.0) Basophils (%) (Auto) 0.4 % (0.0-2.0) Sodium Level 141 MMOL/L (136-145) Potassium Level 3.1 MMOL/L (3.5-5.1) L Chloride Level 107 MMOL/L (98-107) Carbon Dioxide Level 26 MMOL/L (21-32) Anion Gap 8 mmol/L (5-15) Blood Urea Nitrogen 9 mg/dL (7-18) Creatinine 0.9 MG/DL (0.55-1.30) Estimat Glomerular Filtration Rate mL/min (>60) Glucose Level 180 MG/DL (74-106) H Calcium Level 8.8 MG/DL (8.5-10.1) Lipase 1113 U/L (73-393) H Plan Problems: (1) Severe protein-calorie malnutrition (2) Painless jaundice Assessment & Plan: IMPRESSION: 1. Heterogeneous mass within the body of the pancreas measuring 5.1 x 5. 0 x 5.9 cm with area of internal cystic change. Finding is consistent with malignancy. 2. There is upstream dilatation of the pancreatic duct and severe intrahepatic and extrahepatic biliary dilatation. 3. The gallbladder is markedly distended extending into the pelvis. No mucosal inflammatory changes. 4. The portal veins, splenic vein, and SMV are patent. 5. Nonspecific left adrenal nodule measuring 1.9 cm. Metastatic disease could have this appearance however the distribution would be atypical for a primary pancreatic malignancy. 6. Sigmoid diverticulosis without diverticulitis. Likely pancreatic CA patient not aware of this until this admission appreciate Gi input labs noted recommend transfer to higher level of care thank you Vel Yoo Dec 20, 2018 10:44
[2018-12-20] MEDS ORDERED: Heplock Flush 100 units/ml 3 ml syr ONE (11:46)
[2018-12-20] MEDS ORDERED: Lidocaine 1% MPF 10mg/ml 5ml ONE (12:00)
[2018-12-20] MEDS ORDERED: Esmolol 100mg/10ml Inj ONE (12:00)
[2018-12-20] MEDS ORDERED: Propofol 200mg/20ml IV ONE (12:00)
--- NOTE | 2018-12-20 12:03 | NUR ---
NURSE NOTES: Patient is off the unit for Endoscopy, ERCP in stable condition.
--- NOTE | 2018-12-20 12:08 | Pre-Procedure Note/Attestation ---
Pre-Procedure Note/Attestation Complete Prior to Procedure Planned Procedure: not applicable Procedure Narrative: eus Indications for Procedure Pre-Operative Diagnosis: pancreatic mass Attestation I attest that I discussed the nature of the procedure; its benefits; risks and complications; and alternatives (and the risks and benefits of such alternatives ), prior to the procedure, with the patient (or the patient's legal printing supplies sales representative). I attest that, if there was a reasonable possibility of needing a blood transfusion, the patient (or the patient's legal printing supplies sales representative) was given the [facility] standardized written summary, pursuant to the [place] Blood Safety Act ([place] Health and Safety Code # 1645, as amended). I attest that I re-evaluated the patient just prior to the surgery and that there has been no change in the patient's H&P, except as documented below: Hardeep Galvez MD Dec 20, 2018 12:08
[2018-12-20] MEDS ORDERED: NS 500ML IVPB ONE (12:11)
--- NOTE | 2018-12-20 12:15 | NUR ---
Emergency Room Registered NurseConcrete Pipe Making Machine Operator SI: Painless Jaundice BP:138/81 HR:97 RR:20 02 Sat:94% on RA T:97.5 Lipase:1113 K+:3.1 Hgb:9.4 Endoscopy/ERCP IS: IVF M/S Status DCP: Home once medically cleared
--- NOTE | 2018-12-20 12:37 | Endoscopy Procedure Note ---
Endoscopy Procedure Note General Indication for Procedure: juandice Procedures Performed: EGD Operative Findings/Diagnosis: gastritis Specimen: none Pt Tolerated Procedure Well: Yes Estimated Blood Loss: none Anesthesia Anesthesiologist: kkie Anesthesia: MAC Inserted Devices Implant(s) used?: No GI Core Measures 50 yrs or older w/o bx or poly: Not Applicable 10yrs. F/U recommended: Not Applicable Hardeep Galvez MD Dec 20, 2018 12:37
--- NOTE | 2018-12-20 13:03 | Immediate Post-Op Evaluation ---
Immediate Post-Op Evalulation Immediate Post-Op Evalulation Procedure: egd Date of Evaluation: Dec 20, 2018 Time of Evaluation: 12:50 IV Fluids: 200ml 0.9ns Blood Products: none Estimated Blood Loss: negligible Blood Pressure Systolic: 124 Blood Pressure Diastolic: 79 Pulse Rate: 95 Respiratory Rate: 18 O2 Sat by Pulse Oximetry: 100 Temperature (Fahrenheit): 97.9 Pain Score (1-10): 0 Nausea: No Vomiting: No Complications none Patient Status: awake, reacts, patent Hydration Status: adequate Drug: Gita Fagan MD Dec 20, 2018 13:03
--- NOTE | 2018-12-20 13:05 | 48 Hour Post Anesthesia Eval ---
Post Anesthesia Evaluation Procedure: egd Date of Evaluation: Dec 20, 2018 Time of Evaluation: 12:52 Blood Pressure Systolic: 128 0: 82 Pulse Rate: 89 Respiratory Rate: 18 Temperature (Fahrenheit): 97.9 O2 Sat by Pulse Oximetry: 100 Airway: patent Nausea: No Vomiting: No Pain Intensity: 0 Hydration Status: adequate Cardiopulmonary Status: stable Mental Status/LOC: patient returned to baseline Post-Anesthesia Complications: none Follow-up care needed: N/A Gita Batista MD Dec 20, 2018 13:05
--- NOTE | 2018-12-20 13:22 | NUR ---
NURSE NOTES: Patient came back to the unit. Received report from Gloria Craig, [employer]. EGD was done. No Bx collected. Pt is asleep.
--- NOTE | 2018-12-20 13:32 | NUR ---
NURSE NOTES: Giovanni was notified regarding pt came back to the unit after EGD done. Giovanni ordered regular diet. Will put it in.
--- NOTE | 2018-12-20 16:50 | General Progress Note ---
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 seen at EGD unable to do EUS will need dilatation, mass bx awaiting CS transfer when bed available Subjective Constitutional: Reports: malaise, weakness, other - weight loss Allergies: Coded Allergies: No Known Allergies (Unverified , 08/08/18) Objective Last 24 Hour Vital Signs Date Time Temp Pulse Resp B/P (MAP) Pulse Ox O2 Delivery O2 Flow Rate FiO2 12/20/18 16:00 97.6 94 18 144/76 (98) 98 12/20/18 13:05 89 18 100 12/20/18 13:03 88 16 135/85 97 Room Air 12/20/18 13:03 95 18 100 12/20/18 12:55 97.4 86 15 141/80 95 Room Air 12/20/18 12:45 88 14 143/84 97 Nasal Cannula 3 12/20/18 12:40 90 15 128/82 99 Nasal Cannula 3 12/20/18 12:38 97.9 95 18 124/79 100 Nasal Cannula 3 12/20/18 12:00 97.5 97 20 138/81 (100) 94 12/20/18 09:00 Room Air 12/20/18 08:00 97.4 87 16 138/69 (92) 98 12/20/18 04:00 97.5 86 18 129/66 (87) 91 12/19/18 20:00 97.4 74 18 121/66 (84) 94 Intake and Output 12/19/18 12/20/18 19:00 07:00 Intake Total 1100 ml 1150 ml Output Total 200 ml Balance 1100 ml 950 ml Intake Oral 50 ml IV Total 1100 ml 1100 ml Output Urine Total 200 ml # Voids 3 # Bowel Movements 1 Laboratory Tests 12/20/18 04:45: White Blood Count 6.9, Red Blood Count 2.93L, Hemoglobin 9.4L, Hematocrit 29.2L , Mean Corpuscular Volume 100H, Mean Corpuscular Hemoglobin 32.2H, Mean Corpuscular Hemoglobin Concent 32.4, Red Cell Distribution Width 14.1, Platelet Count 312, Mean Platelet Volume 5.5L, Neutrophils (%) (Auto) 84.2H, Lymphocytes (%) (Auto) 10.3L, Monocytes (%) (Auto) 4.7, Eosinophils (%) (Auto) 0.4, Basophils (%) (Auto) 0.4, Sodium Level 141, Potassium Level 3.1L, Chloride Level 107, Carbon Dioxide Level 26, Anion Gap 8, Blood Urea Nitrogen 9, Creatinine 0.9, Estimat Glomerular Filtration Rate , Glucose Level 180H, Calcium Level 8.8, Lipase 1113H Height (Feet): 5 Height (Inches): 9.00 Weight (Pounds): 105 General Appearance: no apparent distress, alert, cachetic EENT: scleral icterus Cardiovascular: normal rate Respiratory/Chest: lungs clear Abdomen: non tender, soft, no organomegaly, no mass Aryan Calles MD Dec 20, 2018 16:50
--- NOTE | 2018-12-20 19:27 | NUR ---
HAND-OFF: Report given to VIRGILIO Macias. Pt is stable.
--- NOTE | 2018-12-20 19:30 | NUR ---
NURSE NOTES: Received report from VIRGILIO Mason. Patient alert, oriented. no distress noted, denies pain. IVF infusing in RFA intact. Offered pericare/bath and PO fluids at this time, patient refuses. States she wants to sleep at this time. Refused assessment, will attempt at later time. Bed in low position, locked, side rails up x2, call light within reach. Will continue to monitor.
[2018-12-21] VITALS (11 sets, daily range): BP systolic 127–158; BP diastolic 67–89
--- NOTE | 2018-12-21 | Procedure Note ---
DATE OF PROCEDURE: 12/20/2018 SURGEON: Hardeep Galvez M.D. REFERRING PHYSICIAN: Aryan Calles M.D. PROCEDURE: We attempt EUS, but we only performed EGD. INSTRUMENTS: EUS scope and upper endoscope. INDICATION: Pancreatic mass and jaundice. The procedure, risks, benefits, and possible consequences, including hemorrhage, aspiration, perforation and infection, and alternative treatments, were explained to the patient/legal guardian by Dr. Hardeep Galvez and the patient/legal guardian understood and accepted these risks. PROCEDURE IN DETAIL: After informed consent was obtained and the patient was adequately sedated, the EUS scope was advanced from the mouth into the esophagus. As soon as we got to above 40 cm from the incisors, we most probably got to the GE junction. We saw there was resistance to pass the scope through into the stomach, so at this time, we stopped. We did not want to cause perforation. We switched the scope to an upper scope. Now we would see why, the reason, as there was a stricture right at the GE junction, tight stricture. We were able to pass the upper scope easily without any problem, but passing the EUS scope, I think caused a little bit of trauma and we felt that if we continued pushing the EUS scope through this, there was a high risk of perforation, so at this time, we decided not to do that. Unfortunately, we did not have the consent for dilation, so we could not dilate at this time. The scope was passed into the stomach. The patient had evidence of hiatal hernia and gastritis. No any other findings. At this time, the upper scope was retrieved and the procedure was terminated. SUMMARY OF FINDINGS: 1. 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 2. GE junction stricture, ring-type stricture, able to pass the upper scope through. 3. Hiatal hernia. 4. Gastritis. RECOMMENDATIONS: We will discuss with the primary team and the rest of the teams regarding the management of this patient. I think passing the EUS scope is a little bit risky at this time unless we dilate later on and do that at that time. 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 We will discuss with Dr. Calles, the primary team, and make the decision. I want to thank, Dr. Calles, for this kind referral. Hardeep Galvez M.D. DR: Mae JOB#: [id number] CC: Aryan Calles M.D.; Fax#: [phone]
[2018-12-21] MEDS: D5NS 1,000 ML IV SCH ×2 (00:31→10:16)
[2018-12-21 06:30] LABS: BASOPHILS % (AUTO) 0.7 % (0.0-2.0); EOSINOPHILS % (AUTO) 0.5 % (0.0-3.0); HEMATOCRIT 29.2 % (37.0-47.0); HEMOGLOBIN 9.7 G/DL (12.0-16.0); LYMPHOCYTES % (AUTO) 14.2 % (20.0-45.0); MEAN CORPUSCULAR VOLUME 100 FL (80-99); MONOCYTES % (AUTO) 4.9 % (1.0-10.0); NEUTROPHILS % (AUTO) 79.7 % (45.0-75.0); PLATELET COUNT 295 K/UL (150-450); RED BLOOD COUNT 2.94 M/UL (4.20-5.40); RED CELL DISTRIBUTION WIDTH 14.2 % (11.6-14.8); WHITE BLOOD COUNT 6.8 K/UL (4.8-10.8)
[2018-12-21 06:34] LABS: INR 1.1 (0.9-1.1)
--- NOTE | 2018-12-21 06:40 | NUR ---
NURSE NOTES: Received phone call from VIRGILIO Campbell from GI lab. Consent signed as requested. Patient alert, oriented x4. No distress noted.
[2018-12-21] MEDS ORDERED: Glycopyrrolate 0.2mg/ml 1ml Vial ONE (06:52)
[2018-12-21] MEDS ORDERED: fentaNYL 100 mcg/2 mL ONE (06:52)
[2018-12-21] MEDS ORDERED: Iothalamate Meglumine 60% 30ML INJ ONE ×2 (06:58→08:15)
[2018-12-21] MEDS ORDERED: Propofol 200mg/20ml IV ONE (07:00)
[2018-12-21 07:06] LABS: ALANINE AMINOTRANSFERASE 184 U/L (12-78); ALBUMIN 2.1 G/DL (3.4-5.0); ALBUMIN/GLOBULIN RATIO 0.7 (1.0-2.7); ALKALINE PHOSPHATASE 416 U/L (46-116); AMYLASE 196 U/L (25-115); ANION GAP 7 mmol/L (5-15); ASPARTATE AMINO TRANSFERASE 226 U/L (15-37); BILIRUBIN,TOTAL 14.6 MG/DL (0.2-1.0); BLOOD UREA NITROGEN 3 mg/dL (7-18); CALCIUM 8.4 MG/DL (8.5-10.1); CARBON DIOXIDE 28 MMOL/L (21-32); CHLORIDE 104 MMOL/L (98-107); CREATININE 0.8 MG/DL (0.55-1.30); SODIUM 139 MMOL/L (136-145)
[2018-12-21 07:11] LABS: BILIRUBIN,DIRECT 11.9 MG/DL (0.0-0.3); POTASSIUM 2.7 MMOL/L (3.5-5.1)
--- NOTE | 2018-12-21 07:11 | NUR ---
NURSE NOTES: Received call from lab regarding critical value, potassium 2.7. 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 Patient left to OR at 07 Addendum: 12/21/18 at 0718 by Colleen Ibarra RN Patient left for GI lab.
--- NOTE | 2018-12-21 07:15 | NUR ---
HAND-OFF: Report given to VIRGILIO Chaparro. Aware of critical lab value potassium.
--- NOTE | 2018-12-21 07:15 | Pre-Procedure Note/Attestation ---
Pre-Procedure Note/Attestation Complete Prior to Procedure Planned Procedure: not applicable Procedure Narrative: ercp Indications for Procedure Pre-Operative Diagnosis: pancreatic mass Attestation I attest that I discussed the nature of the procedure; its benefits; risks and complications; and alternatives (and the risks and benefits of such alternatives ), prior to the procedure, with the patient (or the patient's legal inside sales representative). I attest that, if there was a reasonable possibility of needing a blood transfusion, the patient (or the patient's legal inside sales representative) was given the [facility] standardized written summary, pursuant to the [place]uster [place] Blood Safety Act ([place] Health and Safety Code # 1645, as amended). I attest that I re-evaluated the patient just prior to the surgery and that there has been no change in the patient's H&P, except as documented below: Hardeep Galvez MD Dec 21, 2018 07:15
--- NOTE | 2018-12-21 07:30 | NUR ---
NURSE NOTES: Pt down in GI lab for procedure. Per business reporter RN, OR nurse contacted Dr. Galvez regarding critical lab value of K 2.7. Will continue to monitor.
[2018-12-21] MEDS ORDERED: NS 500ML IVPB ONE (07:38)
--- NOTE | 2018-12-21 08:00 | Anethesia Preoperative Eval ---
Anesthesia Pre-op PMH/ROS General Date of Evaluation: Dec 21, 2018 Time of Evaluation: 07:02 Anesthesiologist: Lawrence ASA Score: ASA 4 Mallampati Score Class I : Soft palate, uvula, fauces, pillars visible Class II: Soft palate, uvula, fauces visible Class III: Soft palate, base of uvula visible Class IV: Only hard plate visible Mallampati Classification: Class II Surgeon: Leonor Diagnosis: Pancreatic tumor Surgical Procedure: ERCP Anesthesia History: none Family History: no anesthesia problems Allergies: Coded Allergies: No Known Allergies (Unverified , 08/08/18) Medications: see eMAR Patient NPO?: Yes Past Medical History Cardiovascular: Reports: HTN; Denies: CAD, AL, valve dz, arrhythmia, other Pulmonary: Denies: asthma, COPD, GIO, other Gastrointestinal/Genitourinary: Reports: GERD, other - pancreatic tumor; Denies: CRI, ESRD Neurologic/Psychiatric: Reports: depression/anxiety; Denies: dementia, CVA, TIA, other Endocrine: Reports: hypothyroidism HEENT: Denies: cataract (L), cataract (R), glaucoma, B[place] BAND (L), B[place] BAND (R), other Hematology/Immune: Reports: anemia; Denies: DVT, bleeding disorder, other Musculoskeletal/Integumentary: Denies: OA, RA, DJD, DDD, edema, other Other: other - malnourished PMH Narrative: as above PSxH Narrative: see H&P Anesthesia Pre-op Phys. Exam Physician Exam Last Vital Signs Date Time Temp Pulse Resp B/P (MAP) Pulse Ox O2 Delivery O2 Flow Rate FiO2 12/21/18 04:00 97.4 95 19 149/74 (99) 95 12/20/18 21:00 Room Air 12/20/18 12:45 3 Constitutional: NAD Neurologic: CN 2-12 intact Cardiovascular: RRR, no M/R/G Respiratory: CTA Gastrointestinal: S/NT/ND Airway Exam Mallampati Score: Class II MO: limited Neck: stiff ROM: limited Teeth: missing Dentures: upper, lower Anesthesia Pre-op A/P Labs Hematology Test 12/21/18 04:50 White Blood Count 6.8 K/UL (4.8-10.8) Red Blood Count 2.94 M/UL (4.20-5.40) L Hemoglobin 9.7 G/DL (12.0-16.0) L Hematocrit 29.2 % (37.0-47.0) L Mean Corpuscular Volume 100 FL (80-99) H Mean Corpuscular Hemoglobin 32.9 PG (27.0-31.0) H Mean Corpuscular Hemoglobin Concent 33.1 G/DL (32.0-36.0) Red Cell Distribution Width 14.2 % (11.6-14.8) Platelet Count 295 K/UL (150-450) Mean Platelet Volume 5.3 FL (6.5-10.1) L Neutrophils (%) (Auto) 79.7 % (45.0-75.0) H Lymphocytes (%) (Auto) 14.2 % (20.0-45.0) L Monocytes (%) (Auto) 4.9 % (1.0-10.0) Eosinophils (%) (Auto) 0.5 % (0.0-3.0) Basophils (%) (Auto) 0.7 % (0.0-2.0) Erythrocyte Sedimentation Rate Pending Coagulation Test 12/21/18 04:50 Prothrombin Time 11.8 SEC (9.30-11.50) H Prothromb Time International Ratio 1.1 (0.9-1.1) Activated Partial Thromboplast Time 28 SEC (23-33) Chemistry Test 12/21/18 04:50 Sodium Level 139 MMOL/L (136-145) Potassium Level 2.7 MMOL/L (3.5-5.1) *L Chloride Level 104 MMOL/L (98-107) Carbon Dioxide Level 28 MMOL/L (21-32) Anion Gap 7 mmol/L (5-15) Blood Urea Nitrogen 3 mg/dL (7-18) L Creatinine 0.8 MG/DL (0.55-1.30) Estimat Glomerular Filtration Rate mL/min (>60) Glucose Level 145 MG/DL (74-106) H Calcium Level 8.4 MG/DL (8.5-10.1) L Total Bilirubin 14.6 MG/DL (0.2-1.0) H Direct Bilirubin 11.9 MG/DL (0.0-0.3) H Aspartate Amino Transf (AST/SGOT) 226 U/L (15-37) H Alanine Aminotransferase (ALT/SGPT) 184 U/L (12-78) H Alkaline Phosphatase 416 U/L (46-116) H C-Reactive Protein, Quantitative 4.6 mg/dL (0.00-0.90) H Total Protein 5.3 G/DL (6.4-8.2) L Albumin 2.1 G/DL (3.4-5.0) L Globulin 3.2 g/dL Albumin/Globulin Ratio 0.7 (1.0-2.7) L Amylase Level 196 U/L (25-115) H Lipase 914 U/L (73-393) H Risk Assessment & Plan Assessment: ASA 4 Plan: GA with ETT Status Change Before Surgery: No Pre-Antibiotics Drug: none Cornelius Bravo MD Dec 21, 2018 08:00
--- NOTE | 2018-12-21 08:47 | NUR ---
*-* INSURANCE *-* ALL CLINICALS AND REVIEWS HAVE BEEN FAXED TO: ROBERT AVILEZ:ALEXA P: [phone] F: [phone]
--- NOTE | 2018-12-21 08:52 | Endoscopy Procedure Note ---
Endoscopy Procedure Note General Indication for Procedure: juandice Procedures Performed: ERCP Operative Findings/Diagnosis: stricture Specimen: none Pt Tolerated Procedure Well: Yes Estimated Blood Loss: none Anesthesia Anesthesiologist: yuliana Anesthesia: general Inserted Devices Implant(s) used?: No GI Core Measures 50 yrs or older w/o bx or poly: Not Applicable 10yrs. F/U recommended: Not Applicable Hardeep Galvez MD Dec 21, 2018 08:52
--- NOTE | 2018-12-21 08:57 | Immediate Post-Op Evaluation ---
Immediate Post-Op Evalulation Immediate Post-Op Evalulation Procedure: ERCP sphincterotomy, CBD dilation and stent placement Date of Evaluation: Dec 21, 2018 Time of Evaluation: 08:56 IV Fluids: 400 Blood Products: none Estimated Blood Loss: min Urinary Output: none Blood Pressure Systolic: 132 Blood Pressure Diastolic: 84 Pulse Rate: 86 Respiratory Rate: 20 O2 Sat by Pulse Oximetry: 99 Temperature (Fahrenheit): 97.8 Pain Score (1-10): 1 Nausea: No Vomiting: No Complications none Patient Status: reacts, patent, extubated, none Hydration Status: adequate Cornelius Bravo MD Dec 21, 2018 08:57
[2018-12-21] MEDS: Metoprolol Succinate XL 50mg tab ORAL SCH (10:16)
[2018-12-21] MEDS: carBAMazepine 200mg tab ORAL SCH ×2 (10:17→17:42)
--- NOTE | 2018-12-21 14:10 | General Progress Note ---
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 jaundice stricture, GE jctn hypokalemia biliary strictures stented no mass bx done start diet K rx prob dc tomorrow Subjective ROS Limited/Unobtainable: Yes Allergies: Coded Allergies: No Known Allergies (Unverified , 08/08/18) Objective Last 24 Hour Vital Signs Date Time Temp Pulse Resp B/P (MAP) Pulse Ox O2 Delivery O2 Flow Rate FiO2 12/21/18 12:00 97.2 90 18 148/77 (100) 98 12/21/18 10:16 79 142/76 12/21/18 10:16 79 142/76 12/21/18 09:30 97.6 70 14 127/67 100 Nasal Cannula 3 12/21/18 09:30 97.0 79 18 142/76 (98) 99 12/21/18 09:15 72 15 130/68 100 Nasal Cannula 3 12/21/18 09:05 75 12 148/76 100 Simple Mask 6 12/21/18 09:00 Room Air 12/21/18 09:00 82 13 154/85 99 Simple Mask 6 12/21/18 08:57 86 20 99 12/21/18 08:55 88 14 132/81 100 Simple Mask 6 12/21/18 08:52 97.9 92 12 131/89 100 Simple Mask 6 12/21/18 04:00 97.4 95 19 149/74 (99) 95 12/21/18 00:00 97.7 92 18 158/82 (107) 95 12/20/18 21:00 Room Air 12/20/18 20:00 97.4 93 16 133/74 (93) 98 12/20/18 17:24 94 144/76 12/20/18 16:00 97.6 94 18 144/76 (98) 98 Intake and Output 12/20/18 12/21/18 19:00 07:00 Intake Total 1300 ml 1260 ml Output Total 0 ml 825 ml Balance 1300 ml 435 ml Intake Oral 60 ml IV Total 1300 ml 1200 ml Output Urine Total 825 ml Estimated Blood Loss 0 ml # Voids 2 Laboratory Tests 12/21/18 04:50: White Blood Count 6.8, Red Blood Count 2.94L, Hemoglobin 9.7L, Hematocrit 29.2L , Mean Corpuscular Volume 100H, Mean Corpuscular Hemoglobin 32.9H, Mean Corpuscular Hemoglobin Concent 33.1, Red Cell Distribution Width 14.2, Platelet Count 295, Mean Platelet Volume 5.3L, Neutrophils (%) (Auto) 79.7H, Lymphocytes (%) (Auto) 14.2L, Monocytes (%) (Auto) 4.9, Eosinophils (%) (Auto) 0.5, Basophils (%) (Auto) 0.7, Erythrocyte Sedimentation Rate 28, Prothrombin Time 11.8H, Prothromb Time International Ratio 1.1, Activated Partial Thromboplast Time 28, Sodium Level 139, Potassium Level 2.7*L, Chloride Level 104, Carbon Dioxide Level 28, Anion Gap 7, Blood Urea Nitrogen 3L, Creatinine 0.8, Estimat Glomerular Filtration Rate , Glucose Level 145H, Calcium Level 8.4L, Total Bilirubin 14.6H, Direct Bilirubin 11.9H, Aspartate Amino Transf (AST/SGOT) 226H , Alanine Aminotransferase (ALT/SGPT) 184H, Alkaline Phosphatase 416H, C- Reactive Protein, Quantitative 4.6H, Total Protein 5.3L, Albumin 2.1L, Globulin 3.2, Albumin/Globulin Ratio 0.7L, Amylase Level 196H, Lipase 914H Height (Feet): 5 Height (Inches): 5.00 Weight (Pounds): 105 General Appearance: no apparent distress Neck: normal alignment Cardiovascular: normal rate Respiratory/Chest: lungs clear Aryan Calles MD Dec 21, 2018 14:10
[2018-12-21] MEDS: D5NS w/KCl 40mEq 1000ml 1,000 ML IV SCH (15:30)
--- NOTE | 2018-12-21 15:38 | Surgery Progress Note ---
Surgery Progress Note Subjective Additional Comments EUS and ERCP done biliary stricture panc mass labs improved today exam stable comfortable Objective Last 24 Hour Vital Signs Date Time Temp Pulse Resp B/P (MAP) Pulse Ox O2 Delivery O2 Flow Rate FiO2 12/21/18 12:00 97.2 90 18 148/77 (100) 98 12/21/18 10:16 79 142/76 12/21/18 10:16 79 142/76 12/21/18 09:30 97.6 70 14 127/67 100 Nasal Cannula 3 12/21/18 09:30 97.0 79 18 142/76 (98) 99 12/21/18 09:15 72 15 130/68 100 Nasal Cannula 3 12/21/18 09:05 75 12 148/76 100 Simple Mask 6 12/21/18 09:00 Room Air 12/21/18 09:00 82 13 154/85 99 Simple Mask 6 12/21/18 08:57 86 20 99 12/21/18 08:55 88 14 132/81 100 Simple Mask 6 12/21/18 08:52 97.9 92 12 131/89 100 Simple Mask 6 12/21/18 04:00 97.4 95 19 149/74 (99) 95 12/21/18 00:00 97.7 92 18 158/82 (107) 95 12/20/18 21:00 Room Air 12/20/18 20:00 97.4 93 16 133/74 (93) 98 12/20/18 17:24 94 144/76 12/20/18 16:00 97.6 94 18 144/76 (98) 98 I&O Intake and Output 12/20/18 12/21/18 19:00 07:00 Intake Total 1300 ml 1260 ml Output Total 0 ml 825 ml Balance 1300 ml 435 ml Intake Oral 60 ml IV Total 1300 ml 1200 ml Output Urine Total 825 ml Estimated Blood Loss 0 ml # Voids 2 Cardiovascular: RSR Respiratory: clear Abdomen: soft, flat, non-tender, present bowel sounds Extremities: no edema, no tenderness, no cyanosis Laboratory Tests Test 12/21/18 04:50 White Blood Count 6.8 K/UL (4.8-10.8) Red Blood Count 2.94 M/UL (4.20-5.40) L Hemoglobin 9.7 G/DL (12.0-16.0) L Hematocrit 29.2 % (37.0-47.0) L Mean Corpuscular Volume 100 FL (80-99) H Mean Corpuscular Hemoglobin 32.9 PG (27.0-31.0) H Mean Corpuscular Hemoglobin Concent 33.1 G/DL (32.0-36.0) Red Cell Distribution Width 14.2 % (11.6-14.8) Platelet Count 295 K/UL (150-450) Mean Platelet Volume 5.3 FL (6.5-10.1) L Neutrophils (%) (Auto) 79.7 % (45.0-75.0) H Lymphocytes (%) (Auto) 14.2 % (20.0-45.0) L Monocytes (%) (Auto) 4.9 % (1.0-10.0) Eosinophils (%) (Auto) 0.5 % (0.0-3.0) Basophils (%) (Auto) 0.7 % (0.0-2.0) Erythrocyte Sedimentation Rate 28 MM/HR (0-30) Prothrombin Time 11.8 SEC (9.30-11.50) H Prothromb Time International Ratio 1.1 (0.9-1.1) Activated Partial Thromboplast Time 28 SEC (23-33) Sodium Level 139 MMOL/L (136-145) Potassium Level 2.7 MMOL/L (3.5-5.1) *L Chloride Level 104 MMOL/L (98-107) Carbon Dioxide Level 28 MMOL/L (21-32) Anion Gap 7 mmol/L (5-15) Blood Urea Nitrogen 3 mg/dL (7-18) L Creatinine 0.8 MG/DL (0.55-1.30) Estimat Glomerular Filtration Rate mL/min (>60) Glucose Level 145 MG/DL (74-106) H Calcium Level 8.4 MG/DL (8.5-10.1) L Total Bilirubin 14.6 MG/DL (0.2-1.0) H Direct Bilirubin 11.9 MG/DL (0.0-0.3) H Aspartate Amino Transf (AST/SGOT) 226 U/L (15-37) H Alanine Aminotransferase (ALT/SGPT) 184 U/L (12-78) H Alkaline Phosphatase 416 U/L (46-116) H C-Reactive Protein, Quantitative 4.6 mg/dL (0.00-0.90) H Total Protein 5.3 G/DL (6.4-8.2) L Albumin 2.1 G/DL (3.4-5.0) L Globulin 3.2 g/dL Albumin/Globulin Ratio 0.7 (1.0-2.7) L Amylase Level 196 U/L (25-115) H Lipase 914 U/L (73-393) H Plan Problems: (1) Severe protein-calorie malnutrition (2) Painless jaundice Assessment & Plan: IMPRESSION: 1. Heterogeneous mass within the body of the pancreas measuring 5.1 x 5. 0 x 5.9 cm with area of internal cystic change. Finding is consistent with malignancy. 2. There is upstream dilatation of the pancreatic duct and severe intrahepatic and extrahepatic biliary dilatation. 3. The gallbladder is markedly distended extending into the pelvis. No mucosal inflammatory changes. 4. The portal veins, splenic vein, and SMV are patent. 5. Nonspecific left adrenal nodule measuring 1.9 cm. Metastatic disease could have this appearance however the distribution would be atypical for a primary pancreatic malignancy. 6. Sigmoid diverticulosis without diverticulitis. Likely pancreatic CA patient not aware of this until this admission appreciate Gi input labs noted s/p ercp/eus d/c planning outpatient follow up thank you Vel Yoo Dec 21, 2018 15:38
--- NOTE | 2018-12-21 16:15 | Procedure Note ---
DATE OF PROCEDURE: 12/21/2018 SURGEON: Hardeep Galvez M.D. PROCEDURE: ERCP, sphincterotomy dilation, stent placement. ANESTHESIA: Per Dr. Bravo. INSTRUMENT: Olympus adult flexible ERCP scope. INDICATION: Jaundice, pancreatic mass, biliary obstruction. REASON FOR PROCEDURE: The procedure, risks, benefits, and possible consequences, including hemorrhage, aspiration, perforation and infection, and alternative treatments, were explained to the patient/legal guardian by Dr. Hardeep Galvez and the patient/legal guardian understood and accepted these risks. DESCRIPTION OF PROCEDURE: After informed consent was obtained and the patient was adequately sedated, ERCP scope was advanced from mouth into the second portion of duodenum. Initially, we tried to use the sphincterotome to get cannulation of the common bile duct, which was unsuccessful, so we switched to a catheter, which we were able to cannulate the common bile duct. Initial cholangiogram showed 2 strictures in the common bile duct about 4 cm very tight stricture in the distal common bile duct followed by another stricture in the hilum of the liver causing severe biliary obstruction. Then, we performed a small sphincterotomy using a standard sphincterotomy technique. Then, we used a 6 mm x 4 cm dilator to dilate both strictures. Then over a guidewire, a 10-Bruneian 9 cm stent was successfully placed in the common bile duct by passing both strictures. The patient tolerated procedure well without complication. SUMMARY OF FINDINGS: Two 2 strictures in the common bile duct, one about 4 cm distal above the ampulla and one in the hilum, most probably from the pancreatic mass, status post sphincterotomy dilation and stenting. RECOMMENDATIONS: Follow laboratories. If the patient's amylase and lipase are improving and the patient is pain free, we will start diet and advance as tolerated. The patient will need outpatient EUS with FNA for diagnosis. I want to thank, Dr. Calles, for this kind referral. Hardeep Galvez M.D. DR: EDUIN JOB#: [id number] CC: Aryan Calles M.D.; Fax#: [phone]
--- NOTE | 2018-12-21 16:48 | Diagnostic Imaging Report ---
INDICATION: Pain, intraoperative, jaundice, pancreatic head mass seen on prior CT scan TECHNIQUE: Intraoperative imaging Fluoroscopy time: 297 seconds Total dose: 1.11 mGym2 Total number of images: 8 COMPARISON: None FINDINGS: Intraprocedural images demonstrate dilatation of what is presumably the extreme common bile duct. No downstream ductal opacification demonstrated. There is also apparent narrowing of the common hepatic duct. There is dilatation of the central intrahepatic ducts. Subsequent images document balloon dilatation of the strictures, and then placement of a plastic and a biliary stent IMPRESSION: Intraoperative imaging, as described
--- NOTE | 2018-12-21 19:43 | NUR ---
HAND-OFF: Report given to VIRGILIO Fletcher.
--- NOTE | 2018-12-21 20:43 | NUR ---
NURSE NOTE: Pt is A/Ox4 with stable VS. Physical assessment completed and orders reviewed. Pt has sacral redness that is blanchable, optofoam intact. Will continue to monitor.
[2018-12-22] MEDS: D5NS w/KCl 40mEq 1000ml 1,000 ML IV SCH ×2 (00:46→10:57)
[2018-12-22 04:12] VITALS: BP 136/72
[2018-12-22 05:54] LABS: BASOPHILS % (AUTO) 0.3 % (0.0-2.0); EOSINOPHILS % (AUTO) 0.5 % (0.0-3.0); HEMATOCRIT 27.5 % (37.0-47.0); LYMPHOCYTES % (AUTO) 10.9 % (20.0-45.0); MEAN CORPUSCULAR VOLUME 100 FL (80-99); MONOCYTES % (AUTO) 4.2 % (1.0-10.0); PLATELET COUNT 264 K/UL (150-450); RED BLOOD COUNT 2.74 M/UL (4.20-5.40); RED CELL DISTRIBUTION WIDTH 14.3 % (11.6-14.8); WHITE BLOOD COUNT 7.9 K/UL (4.8-10.8)
[2018-12-22 06:14] LABS: ALANINE AMINOTRANSFERASE 130 U/L (12-78); ALBUMIN 1.9 G/DL (3.4-5.0); ALBUMIN/GLOBULIN RATIO 0.6 (1.0-2.7); ALKALINE PHOSPHATASE 337 U/L (46-116); ANION GAP 8 mmol/L (5-15); ASPARTATE AMINO TRANSFERASE 87 U/L (15-37); BILIRUBIN,TOTAL 6.2 MG/DL (0.2-1.0); BLOOD UREA NITROGEN 3 mg/dL (7-18); CALCIUM 7.7 MG/DL (8.5-10.1); CARBON DIOXIDE 25 MMOL/L (21-32); CHLORIDE 108 MMOL/L (98-107); CREATININE 0.9 MG/DL (0.55-1.30); POTASSIUM 3.7 MMOL/L (3.5-5.1); SODIUM 141 MMOL/L (136-145)
--- NOTE | 2018-12-22 07:34 | NUR ---
HAND-OFF: Report given to Parish Wright.
--- NOTE | 2018-12-22 07:35 | NUR ---
NURSE NOTES: Received patient on bed, asleep. IV intact and patent. Bed in low and locked position, call light in reach. No signs of respiratory distress or pain. Room board updated, will continue to monitor.
[2018-12-22 08:00] VITALS: BP 139/72
[2018-12-22] MEDS: carBAMazepine 200mg tab ORAL SCH (09:22)
[2018-12-22] MEDS: Metoprolol Succinate XL 50mg tab ORAL SCH (09:23)
[2018-12-22 12:00] VITALS: BP 144/75
--- NOTE | 2018-12-22 12:08 | General Progress Note ---
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 jaundice stricture, GE jctn hypokalemia biliary strictures stented tolerated diet K normal dc home - refuses SNF advised of pancreatic cancer agrees to hospice social service Subjective Allergies: Coded Allergies: No Known Allergies (Unverified , 08/08/18) Objective Last 24 Hour Vital Signs Date Time Temp Pulse Resp B/P (MAP) Pulse Ox O2 Delivery O2 Flow Rate FiO2 12/22/18 09:23 87 139/72 12/22/18 09:22 87 139/72 12/22/18 09:00 Room Air 12/22/18 08:00 97.9 87 20 139/72 (94) 98 12/22/18 04:12 98.0 86 16 136/72 (93) 98 12/21/18 21:00 Room Air 12/21/18 20:00 98.0 90 16 147/84 (105) 95 12/21/18 17:41 85 139/69 12/21/18 16:00 97.0 85 18 139/69 (92) 97 Intake and Output 12/21/18 12/22/18 19:00 07:00 Intake Total 1840 ml Output Total 0 ml Balance 1840 ml Intake Oral 240 ml IV Total 1600 ml Estimated Blood Loss 0 ml # Voids 2 3 Laboratory Tests 12/22/18 04:45: White Blood Count 7.9, Red Blood Count 2.74L, Hemoglobin 9.0L, Hematocrit 27.5L , Mean Corpuscular Volume 100H, Mean Corpuscular Hemoglobin 32.6H, Mean Corpuscular Hemoglobin Concent 32.5, Red Cell Distribution Width 14.3, Platelet Count 264, Mean Platelet Volume 5.8L, Neutrophils (%) (Auto) 84.0H, Lymphocytes (%) (Auto) 10.9L, Monocytes (%) (Auto) 4.2, Eosinophils (%) (Auto) 0.5, Basophils (%) (Auto) 0.3, Sodium Level 141, Potassium Level 3.7, Chloride Level 108H, Carbon Dioxide Level 25, Anion Gap 8, Blood Urea Nitrogen 3L, Creatinine 0.9, Estimat Glomerular Filtration Rate , Glucose Level 144H, Calcium Level 7.7L , Total Bilirubin 6.2H, Direct Bilirubin 5.0H, Aspartate Amino Transf (AST/SGOT ) 87H, Alanine Aminotransferase (ALT/SGPT) 130H, Alkaline Phosphatase 337H, Total Protein 5.1L, Albumin 1.9L, Globulin 3.2, Albumin/Globulin Ratio 0.6L, Lipase 278 Height (Feet): 5 Height (Inches): 5.00 Weight (Pounds): 100 Aryan Calles MD Dec 22, 2018 12:08
--- NOTE | 2018-12-22 12:22 | GI Progress Note ---
Assessment/Plan Problems: (1) Painless jaundice ICD Codes: R17 - Unspecified jaundice SNOMED: 86409656, 89507176 (2) Pancreatic mass ICD Codes: K86.89 - Other specified diseases of pancreas SNOMED: 694666219 (3) Severe protein-calorie malnutrition ICD Codes: E43 - Unspecified severe protein-calorie malnutrition SNOMED: 463976843, 465566056, 785558631 (4) Dehydration ICD Codes: E86.0 - Dehydration SNOMED: 07600860 Status: stable Status Narrative Discussed with Dr. Galvez. Assessment/Plan SUMMARY OF FINDINGS: Two 2 strictures in the common bile duct, one about 4 cm distal above the ampulla and one in the hilum, most probably from the pancreatic mass, status post sphincterotomy dilation and stenting. RECOMMENDATIONS: Follow laboratories. follow amylase/lipase, advance diet as tolerated patient will need outpatient EUS with FNA for diagnosis of pancreatic mass follow LFTs The patient was seen and examined at bedside and all new and available data was reviewed in the patients chart. I agree with the above findings, impression and plan. (Patient seen earlier today. Signature stamp does not reflect patient encounter time.). - Hardeep Galvez MD Subjective Subjective limited Objective Last 24 Hour Vital Signs Date Time Temp Pulse Resp B/P (MAP) Pulse Ox O2 Delivery O2 Flow Rate FiO2 12/22/18 09:23 87 139/72 12/22/18 09:22 87 139/72 12/22/18 09:00 Room Air 12/22/18 08:00 97.9 87 20 139/72 (94) 98 12/22/18 04:12 98.0 86 16 136/72 (93) 98 12/21/18 21:00 Room Air 12/21/18 20:00 98.0 90 16 147/84 (105) 95 12/21/18 17:41 85 139/69 12/21/18 16:00 97.0 85 18 139/69 (92) 97 Intake and Output 12/21/18 12/22/18 19:00 07:00 Intake Total 1840 ml Output Total 0 ml Balance 1840 ml Intake Oral 240 ml IV Total 1600 ml Estimated Blood Loss 0 ml # Voids 2 3 Laboratory Tests Test 12/22/18 04:45 White Blood Count 7.9 K/UL (4.8-10.8) Red Blood Count 2.74 M/UL (4.20-5.40) L Hemoglobin 9.0 G/DL (12.0-16.0) L Hematocrit 27.5 % (37.0-47.0) L Mean Corpuscular Volume 100 FL (80-99) H Mean Corpuscular Hemoglobin 32.6 PG (27.0-31.0) H Mean Corpuscular Hemoglobin Concent 32.5 G/DL (32.0-36.0) Red Cell Distribution Width 14.3 % (11.6-14.8) Platelet Count 264 K/UL (150-450) Mean Platelet Volume 5.8 FL (6.5-10.1) L Neutrophils (%) (Auto) 84.0 % (45.0-75.0) H Lymphocytes (%) (Auto) 10.9 % (20.0-45.0) L Monocytes (%) (Auto) 4.2 % (1.0-10.0) Eosinophils (%) (Auto) 0.5 % (0.0-3.0) Basophils (%) (Auto) 0.3 % (0.0-2.0) Sodium Level 141 MMOL/L (136-145) Potassium Level 3.7 MMOL/L (3.5-5.1) Chloride Level 108 MMOL/L (98-107) H Carbon Dioxide Level 25 MMOL/L (21-32) Anion Gap 8 mmol/L (5-15) Blood Urea Nitrogen 3 mg/dL (7-18) L Creatinine 0.9 MG/DL (0.55-1.30) Estimat Glomerular Filtration Rate mL/min (>60) Glucose Level 144 MG/DL (74-106) H Calcium Level 7.7 MG/DL (8.5-10.1) L Total Bilirubin 6.2 MG/DL (0.2-1.0) H Direct Bilirubin 5.0 MG/DL (0.0-0.3) H Aspartate Amino Transf (AST/SGOT) 87 U/L (15-37) H Alanine Aminotransferase (ALT/SGPT) 130 U/L (12-78) H Alkaline Phosphatase 337 U/L (46-116) H Total Protein 5.1 G/DL (6.4-8.2) L Albumin 1.9 G/DL (3.4-5.0) L Globulin 3.2 g/dL Albumin/Globulin Ratio 0.6 (1.0-2.7) L Lipase 278 U/L (73-393) Height (Feet): 5 Height (Inches): 5.00 Weight (Pounds): 100 General Appearance: WD/WN, no apparent distress, alert, thin Cardiovascular: normal rate Respiratory/Chest: normal breath sounds, no respiratory distress Abdominal Exam: normal bowel sounds, non tender, soft Extremities: non-tender Ashlee Rodriguez NP Dec 22, 2018 12:22
--- NOTE | 2018-12-22 12:34 | NUR ---
RD ASSESSMENT & RECOMMENDATIONS SEE CARE ACTIVITY FOR COMPLETE ASSESSMENT DAILY ESTIMATED NEEDS: Needs based on Cachectic, catabolic dx 40.5kg 30-35 kcals/kg 6096-6874 total kcals 1-1.5 g protein/kg 41-61 g total protein 25-30ml/kcal mL/kg 7043-3710 total fluid mLs NUTRITION DIAGNOSIS: Increased kcal and pro needs r/t underweight status, cachexia, catabolic dx as evidenced by BMI underweight per guidelines, @61% of ideal body weight, w/ generalized moderate to severe wasting, likely pancreatic CA per MD. CURRENT DIET:REGULAR, soft easy chew PO DIET RECOMMENDATIONS: Maintain liberalized regular w/ poor PO/ texture as tolerated ADDITIONAL RECOMMENDATIONS: 1) Weekly calibrated bed scale wt r/t underweight status 2) W/ PO intake consistently >50%, add low Na + low fat to diet 3) Add Glucerna TID w/ meals 4) Monitor BGs closely, need for hypoglycemics .
--- NOTE | 2018-12-22 13:21 | NUR ---
Social Service Note SW met with patient to assess for home safety. Patient was independent prior to admission. Patient's neighbor Irene Mckeon [phone] visits patient daily and assist patient to driving her to appointments and to run errands. Irene doesn't provide any further assistance. Patient's son Dima Crowe (Chuck) lives in [place] [phone]. Patient asked SW to contact son and inform him that patient is going home today and will receive a hospice consult. Patient states she understands a hospice program. Patient's neighbor Irene will provide patient transportation home and has her keys to patient's apartment. Message left for patient's son, no return call at this time. Message left for Dr. Calles to determine which hospice company will follow patient.
--- NOTE | 2018-12-22 15:09 | NUR ---
OFFICE SUPPORT ASSOCIATE NOTES SPOKE WITH ALEXA FROM [facility] PT STAY AUTHORIZED WITH AUTH [id number]. PT TO DC HOME ON HOSPICE.JUNE AT BEDSIDE MADE AWARE. ALEXA TO MAKE FOLLOW UP APPOINTMENTS WITH ONCOLOGY AND PMD.
--- NOTE | 2018-12-22 15:17 | NUR ---
DISCHARGE PLANNING Discharge order noted Patient has been referred to: [facility], [address] [place] [address] [facility], [address] [place] [address]. [place] [id number] verified acceptance
[2018-12-22] MEDS ORDERED: D5NS 1000ml IV ONE (15:29)
[2018-12-22] MEDS ORDERED: Tubing IV Secondary IV ONE (15:29)
--- NOTE | 2018-12-22 15:30 | NUR ---
NURSE NOTES: Patient discharged home with Hospice care ([facility]). IV removed and site covered. Personal belongings inventoried and sent with patient. salesperson handbags listed and notified. Patient kept comfortable at all times and patient needs met. Patient departed in private vehicle.
--- NOTE | 2018-12-22 15:46 | NUR ---
NURSE NOTES:WOUND CARE NOTES:Pt presented on admission with non-blanchable erythema intertwined with areas that are maroon in colour . Base of wound without induration. Pt denied tenderness when affected area palpated.(L)8.5cm x (W)10.5cm. R and L heels are both boggy. Non-blanchable erythema noted to both heels. Pt verbalized tenderness when each heel minimally palpated. Pt educated on wound prevention. Encouraged to frequently turn while in bed and to keep heels floated off bed with pillow. Tx.Plan: Apply Moisture Barrier Paste to buttocks. Cover with Optifoam drsg. Change every 3 days and prn. Apply Cavilon Skin Barrier to both heels. Cover each heel with Optifoam drsg. Change every 7 days and prn. Reposition at least every 2hours or as tolerated. Off-load heels with pillow.
--- NOTE | 2018-12-22 21:05 | Surgery Progress Note ---
Surgery Progress Note Subjective Symptoms: improved, pain absent, tolerating diet, passing flatus Objective Last 24 Hour Vital Signs Date Time Temp Pulse Resp B/P (MAP) Pulse Ox O2 Delivery O2 Flow Rate FiO2 12/22/18 12:00 97.8 61 18 144/75 (98) 97 12/22/18 09:23 87 139/72 12/22/18 09:22 87 139/72 12/22/18 09:00 Room Air 12/22/18 08:00 97.9 87 20 139/72 (94) 98 12/22/18 04:12 98.0 86 16 136/72 (93) 98 I&O Intake and Output 12/21/18 12/22/18 19:00 07:00 Intake Total 1840 ml Output Total 0 ml Balance 1840 ml Intake Oral 240 ml IV Total 1600 ml Estimated Blood Loss 0 ml # Voids 2 3 Cardiovascular: RSR Respiratory: clear Abdomen: soft, flat, non-tender, present bowel sounds Extremities: no edema, no tenderness, no cyanosis Laboratory Tests Test 12/22/18 04:45 White Blood Count 7.9 K/UL (4.8-10.8) Red Blood Count 2.74 M/UL (4.20-5.40) L Hemoglobin 9.0 G/DL (12.0-16.0) L Hematocrit 27.5 % (37.0-47.0) L Mean Corpuscular Volume 100 FL (80-99) H Mean Corpuscular Hemoglobin 32.6 PG (27.0-31.0) H Mean Corpuscular Hemoglobin Concent 32.5 G/DL (32.0-36.0) Red Cell Distribution Width 14.3 % (11.6-14.8) Platelet Count 264 K/UL (150-450) Mean Platelet Volume 5.8 FL (6.5-10.1) L Neutrophils (%) (Auto) 84.0 % (45.0-75.0) H Lymphocytes (%) (Auto) 10.9 % (20.0-45.0) L Monocytes (%) (Auto) 4.2 % (1.0-10.0) Eosinophils (%) (Auto) 0.5 % (0.0-3.0) Basophils (%) (Auto) 0.3 % (0.0-2.0) Sodium Level 141 MMOL/L (136-145) Potassium Level 3.7 MMOL/L (3.5-5.1) Chloride Level 108 MMOL/L (98-107) H Carbon Dioxide Level 25 MMOL/L (21-32) Anion Gap 8 mmol/L (5-15) Blood Urea Nitrogen 3 mg/dL (7-18) L Creatinine 0.9 MG/DL (0.55-1.30) Estimat Glomerular Filtration Rate mL/min (>60) Glucose Level 144 MG/DL (74-106) H Calcium Level 7.7 MG/DL (8.5-10.1) L Total Bilirubin 6.2 MG/DL (0.2-1.0) H Direct Bilirubin 5.0 MG/DL (0.0-0.3) H Aspartate Amino Transf (AST/SGOT) 87 U/L (15-37) H Alanine Aminotransferase (ALT/SGPT) 130 U/L (12-78) H Alkaline Phosphatase 337 U/L (46-116) H Total Protein 5.1 G/DL (6.4-8.2) L Albumin 1.9 G/DL (3.4-5.0) L Globulin 3.2 g/dL Albumin/Globulin Ratio 0.6 (1.0-2.7) L Lipase 278 U/L (73-393) Plan Problems: (1) Severe protein-calorie malnutrition (2) Painless jaundice Assessment & Plan: IMPRESSION: 1. Heterogeneous mass within the body of the pancreas measuring 5.1 x 5. 0 x 5.9 cm with area of internal cystic change. Finding is consistent with malignancy. 2. There is upstream dilatation of the pancreatic duct and severe intrahepatic and extrahepatic biliary dilatation. 3. The gallbladder is markedly distended extending into the pelvis. No mucosal inflammatory changes. 4. The portal veins, splenic vein, and SMV are patent. 5. Nonspecific left adrenal nodule measuring 1.9 cm. Metastatic disease could have this appearance however the distribution would be atypical for a primary pancreatic malignancy. 6. Sigmoid diverticulosis without diverticulitis. Likely pancreatic CA patient not aware of this until this admission appreciate Gi input labs noted s/p ercp/eus d/c planning outpatient follow up thank you Vel Yoo Dec 22, 2018 21:05
--- NOTE | 2018-12-23 08:35 | Discharge Summary ---
Discharge Summary Discharge Summary _ DATE OF ADMISSION: 12/18/2018 DATE OF DISCHARGE: 12/22/2018 DISCHARGED BY: Dr. Calles REASON FOR ADMISSION: 88 years old female with past medical history of hypertension, reported significant amount of weight loss and being jaundiced for about two weeks to a month. She reported generalized weakness, but no nausea , vomiting or diarrhea . She denied fever or chills. She denied ill contacts. Upon evaluation in emergency department abdominal ultrasound revealed mass within the pancreatic body , resulting in severe biliary dilatation and upstream pancreatic ductal dilatation. Distended gallbladder with intraluminal sludge. CT scan of abdomen and pelvis showed heterogeneous mass within the body of the pancreas measuring 5.1 x 5.0 x 5.9 cm with area of internal cystic change. There was upstream dilatation of the pancreatic duct and severe intrahepatic and extrahepatic biliary dilatation. The gallbladder was markedly distended and extending to the pelvis. No mucosal inflammatory changes. The adrenal had a left nodule measuring 1.9 cm. The kidneys are unremarkable. The appendix was negative for finding of appendicitis. No free air. Portal vein and splenic vein and SMV were all patent . Sigmoid diverticulosis without evidence of diverticulitis noted. Laboratory work-up revealed no leukocytosis , hemoglobin 11.1, hematocrit 33.8. Troponin negative. Sodium 131, potassium 3.3, chloride 90. Anion gap 23. BUN 24, creatinine 1.2. Total bilirubin 22.4, direct bilirubin 18.3. AST 156, ALT 165, alkaline phosphatase 502. Ammonia less than 10. Amylase 89, lipase 523. Patient subsequently admitted for large pancreatic mass , suspicious for malignancy with hyperbilirubinemia a CONSULTANTS: GI specialist Dr. Galvez surgery Dr. Yoo [facility] COURSE: Patient admitted to medical surgical floor. Patient was placed on transfer list to [facility] , where her medical group was for further continuation of care. Patient started on the IV fluids and was kept n.p.o. DVT prophylaxis provided. GI specialist consulted. Home medication resumed. Pain management was addressed. Patient subsequently undergone ERCP with sphincterotomy , dilatation and stent placement. Noted two strictures in the common bile duct: one about 4 cm distal above the ampulla and one in the hilum, most probably from the pancreatic mass, status post sphincterotomy, dilatation and stenting. Surgeon seen and evaluated patient . Per surgeon, patient likely had pancreatic cancer. Patient was not aware of this until this admission. No surgical intervention necessary at this time. LFT, bilirubin and lipase were all closely monitored. Lipase initially increased , but then went down to normal -278 upon discharge . AST trended down to 87 and ALT to 130 after ERCP. Total bilirubin went down to 6.2 and direct bilirubin went down to 5.0 after ERCP. Patient slowly started on diet as tolerated. Supportive care provided. Antiemetic were on board as needed. Pain was controlled . Patient was able to tolerate diet. GI specialist recommended outpatient endoscopic ultrasound with fine-needle aspiration for definite diagnosis. Patient started on diet and was able to tolerate it. Protein supplements provided as per registered nurse fetal recommendation. Potassium was replaced. Hyponatremia resolved with IV hydration. Renal parameters were closely monitored, and nephrotoxics were avoided. Blood pressure was managed with calcium channel latoya and beta-latoya. Patient declined SNF placement. Patient was fully explained her condition , and patient agreed to hospice services. Patient was discharged home with hospice services FINAL DIAGNOSES: 5 cm pancreatic mass with biliary stricture Jaundice Stricture, GE junction Status post ERCP with sphincterotomy, dilation and stent placement Hypokalemia Severe protein calorie malnutrition Dehydration DISCHARGE MEDICATIONS: See Medication Reconciliation list. DISCHARGE INSTRUCTIONS: Patient was discharged home with hospice services. I have been assigned to dictate discharge summary for this account. I was not involved in the patient's management. Madeleine Lisa NP Dec 23, 2018 08:35
--- NOTE | 2018-12-27 11:42 | NUR ---
*-* INSURANCE *-* ALL CLINICALS AND REVIEWS and DISCHARGE SUMMARY HAVE BEEN FAXED TO: ROBERT MONTE:ALEXA P: [phone] F: [phone]
== END 2018-12-22 15:30 | disposition hospice, home (50) | DRG 435 ==
LOC: EMR 15:15 → EDBEDREQ 16:50 → 3E 16:52
PROC: 0DJ08ZZ Inspection of Upper Intestinal Tract, Via Natural or Artificial Opening Endoscopic (ICD-10-PCS; principal; 2018-12-20 12:17)
PROC: 0F798DZ Dilation of Common Bile Duct with Intraluminal Device, Via Natural or Artificial Opening Endoscopic (ICD-10-PCS; 2018-12-21 07:37)
DX: C25.9 Malignant neoplasm of pancreas, unspecified (principal); E43 Unspecified severe protein-calorie malnutrition; K83.1 Obstruction of bile duct; Z68.1 Body mass index [BMI] 19.9 or less, adult; E87.6 Hypokalemia; I10 Essential (primary) hypertension; E86.0 Dehydration; K22.2 Esophageal obstruction; K57.30 Diverticulosis of large intestine without perforation or abscess without bleeding; K29.70 Gastritis, unspecified, without bleeding; K44.9 Diaphragmatic hernia without obstruction or gangrene
CPT/HCPCS: 36415; 74177; 74328; 76000; 76700; 80048; 80053; 80076; 81003; 82140; 82150; 82248; 83690; 84484; 85007; 85025; 85610; 85651; 85730; 86140; 86850; 86900; 86901; 87086; 87181; 93005; 94003; 94150; 99285; J8499